=== PATIENT | male | born 1985 | race Caucasian/White ===

== ENCOUNTER 2019-05-01 06:29 | Inpatient (IN) ==
[2019-05-01] MEDS ORDERED: *HR* HYDROmorphone (PF) 1 MG/ML SYRINGE IVP ONE ×2 (07:03→08:51)
[2019-05-01] MEDS ORDERED: 0.9 % Sodium Chloride 1,000 ML IVC ONE ×2 (07:03→07:59)
[2019-05-01] MEDS ORDERED: Ondansetron 4 MG/2 ML VIAL IVP ONE (07:03)
[2019-05-01] MEDS ORDERED: Promethazine 25 MG in 0.9 % Sodium Chloride 50 ML IVPB ONE (07:30)
[2019-05-01 07:57] LABS: Basophils % 0.2 %; Bilirubin,Urine Negative (Negative); Blood,Urine Negative (Negative); Clarity,Urine Clear (Clear); Color,Urine Yellow (Yellow); Glucose,Urine (UA) Normal (Normal); Hematocrit 49.5 % (37.5-50.1); Hemoglobin 16.1 g/dL (12.9-16.9); Immature Granulocytes % 0.5 % (0-4); Ketones,Urine 15 mg/dL (Negative); Leukocyte Esterase,Urine Negative (Negative); Lymphocytes # 1.1 K/mcL (0.6-4.6); Lymphocytes % 5.9 %; Mean Corpuscular HGB Conc 32.5 g/dL (31.6-35.5); Mean Corpuscular Hemoglobin 28.5 pg (28.0-33.3); Mean Corpuscular Volume 87.8 fL (83.0-100.0); Mean Platelet Volume 10.2 fL (9.4-12.4); Monocytes % 5.4 %; Neutrophils # 16.3 K/mcL (1.6-8.9); Nitrite,Urine Negative (Negative); PH,Urine 8.5 pH Units (5.0-8.0); Platelet Count 307 K/mcL (140-400); Protein,Urine Trace mg/dL (Neg-Trace); Red Blood Count 5.64 M/mcL (4.19-5.50); Red Cell Distribution Width 13.3 % (11.5-14.5); Specific Gravity,Urine 1.024 (1.010-1.025); Urobilinogen,Urine Normal (Normal); White Blood Count 18.5 K/mcL (4.3-11.1)
[2019-05-01] MEDS ORDERED: Piperacillin/Tazobactam 3.375 GM in 0.9 % Sodium Chloride Mini Bag 100 ML IVPB ONE (08:01)
[2019-05-01 08:18] LABS: Alanine Aminotransferase 25 Units/L (7-52); Albumin 4.7 g/dL (3.5-5.7); Albumin/Globulin Ratio 1.6 (1.1-2.2); Alkaline Phosphatase 89 Units/L (34-104); Aspartate Amino Transferase 21 Units/L (13-39); BUN/Creatinine Ratio 15 (6-26); Bilirubin,Direct 0.4 mg/dL (0.0-0.2); Bilirubin,Indirect 0.9 mg/dL (0.0-1.2); Bilirubin,Total 1.3 mg/dL (0.3-1.0); Blood Urea Nitrogen 14 mg/dL (6-20); Calcium 9.8 mg/dL (8.6-10.3); Carbon Dioxide 26 mEq/L (23-29); Chloride 103 mEq/L (98-107); Glucose 130 mg/dL (70-105); Lipase 29 Units/L (11-82); Osmolality,Calculated 294 (280-300); Potassium 4.2 mEq/L (3.5-5.1); Sodium 141 mEq/L (136-145); Total Protein 7.7 g/dL (6.4-8.9); eGFR For African Americans > 60 (> 60); eGFR For Non-African Americans > 60 (> 60)
[2019-05-01] MEDS ORDERED: MetroNIDAZOLE 500 MG/100 ML 500 MG/100 ML BAG IVPB ONE (08:24)
[2019-05-01] MEDS ORDERED: Naloxone 0.4 MG/ML INJ IVP PRN (09:33)
[2019-05-01] MEDS: Pantoprazole 40 MG VIAL IVP SCH (11:44)
[2019-05-01] MEDS: 0.9 % Sodium Chloride 1,000 ML IVC SCH ×2 (11:44→20:40)
[2019-05-01] MEDS: Piperacillin/Tazobactam 3.375 GM in 0.9 % Sodium Chloride Mini Bag 100 ML IVPB SCH (16:49)
[2019-05-01] MEDS: Acetaminophen IV 1,000 MG/100 ML INFUS..BTL IVPB SCH (18:34)
[2019-05-01] MEDS: *HR* Heparin 5,000 UNIT/ML VIAL SQ SCH (18:34)
[2019-05-01] MEDS ORDERED: Dextrose Gel 15 GM/37.5 ML TUBE PO PRN ×2 (20:18)
[2019-05-01] MEDS ORDERED: D5% in Water 1,000 ML IVC PRN (20:18)
[2019-05-02] MEDS: *HR* Dextrose 50 % in Water (Syg) 50 ML SYRINGE IVP PRN ×2 (00:02→12:04)
[2019-05-02] MEDS: Piperacillin/Tazobactam 3.375 GM in 0.9 % Sodium Chloride Mini Bag 100 ML IVPB SCH ×3 (00:11→18:27)
[2019-05-02] MEDS: Ondansetron 4 MG/2 ML VIAL IVP PRN ×2 (00:23→08:27)
[2019-05-02] MEDS: Acetaminophen IV 1,000 MG/100 ML INFUS..BTL IVPB SCH ×5 (01:09→23:28)
[2019-05-02 05:31] LABS: Basophils % 0.1 %; Hematocrit 43.6 % (37.5-50.1); Immature Granulocytes % 1.1 % (0-4); Lymphocytes % 5.9 %; Mean Corpuscular HGB Conc 31.7 g/dL (31.6-35.5); Mean Corpuscular Hemoglobin 28.8 pg (28.0-33.3); Mean Corpuscular Volume 90.8 fL (83.0-100.0); Mean Platelet Volume 10.3 fL (9.4-12.4); Monocytes # 0.9 K/mcL (0.0-1.3); Monocytes % 5.3 %; Platelet Count 188 K/mcL (140-400); Red Cell Distribution Width 13.8 % (11.5-14.5); Segmented Neutrophils % 87.6 %; White Blood Count 17.5 K/mcL (4.3-11.1)
[2019-05-02 05:34] LABS: Hemoglobin 13.8 g/dL (12.9-16.9); Neutrophils # 15.3 K/mcL (1.6-8.9)
[2019-05-02 05:52] LABS: BUN/Creatinine Ratio 12 (6-26); Blood Urea Nitrogen 12 mg/dL (6-20); Calcium 8.2 mg/dL (8.6-10.3); Carbon Dioxide 24 mEq/L (23-29); Chloride 106 mEq/L (98-107); Glucose 92 mg/dL (70-105); Magnesium 1.7 mg/dL (1.6-2.6); Osmolality,Calculated 287 (280-300); Phosphorous 2.3 mg/dL (2.7-4.5); Platelet Estimate Normal (Normal); Potassium 4.1 mEq/L (3.5-5.1); Reactive Lymphocytes Present (Not Present); Sodium 139 mEq/L (136-145); eGFR For African Americans > 60 (> 60); eGFR For Non-African Americans > 60 (> 60)
[2019-05-02] MEDS: *HR* Heparin 5,000 UNIT/ML VIAL SQ SCH ×2 (05:56→18:27)
[2019-05-02] MEDS ORDERED: 0.9 % Sodium Chloride 1,000 ML IVC SCH (07:45)
[2019-05-02] MEDS: Pantoprazole 40 MG VIAL IVP SCH (08:27)
[2019-05-02] MEDS: Scopolamine Patch 1.5 MG PATCH.TD72 TD SCH (17:46)
[2019-05-02] MEDS: D5% in 0.9% NACL 1,000 ML IVC SCH (18:27)
[2019-05-03] MEDS: Piperacillin/Tazobactam 3.375 GM in 0.9 % Sodium Chloride Mini Bag 100 ML IVPB SCH ×3 (00:18→15:17)
[2019-05-03] MEDS: D5% in 0.9% NACL 1,000 ML IVC SCH ×3 (02:37→18:25)
[2019-05-03 05:09] LABS: Basophils % 0.2 %; Hematocrit 40.5 % (37.5-50.1); Immature Granulocytes % 0.9 % (0-4); Lymphocytes # 1.1 K/mcL (0.6-4.6); Lymphocytes % 8.6 %; Mean Corpuscular HGB Conc 32.1 g/dL (31.6-35.5); Mean Corpuscular Hemoglobin 28.8 pg (28.0-33.3); Mean Corpuscular Volume 89.8 fL (83.0-100.0); Monocytes # 0.6 K/mcL (0.0-1.3); Monocytes % 5.1 %; Neutrophils # 10.5 K/mcL (1.6-8.9); Platelet Count 172 K/mcL (140-400); Red Blood Count 4.51 M/mcL (4.19-5.50); Red Cell Distribution Width 13.7 % (11.5-14.5); Segmented Neutrophils % 85.2 %; White Blood Count 12.4 K/mcL (4.3-11.1)
[2019-05-03 05:27] LABS: BUN/Creatinine Ratio 13 (6-26); Blood Urea Nitrogen 10 mg/dL (6-20); Calcium 8.1 mg/dL (8.6-10.3); Carbon Dioxide 25 mEq/L (23-29); Chloride 109 mEq/L (98-107); Glucose 108 mg/dL (70-105); Osmolality,Calculated 286 (280-300); Phosphorous 1.5 mg/dL (2.7-4.5); Potassium 3.7 mEq/L (3.5-5.1); Sodium 138 mEq/L (136-145); eGFR For African Americans > 60 (> 60); eGFR For Non-African Americans > 60 (> 60)
[2019-05-03] MEDS: Acetaminophen IV 1,000 MG/100 ML INFUS..BTL IVPB SCH ×3 (05:28→18:24)
[2019-05-03] MEDS: Ondansetron 4 MG/2 ML VIAL IVP PRN (05:28)
[2019-05-03] MEDS: *HR* Heparin 5,000 UNIT/ML VIAL SQ SCH ×2 (05:31→18:24)
[2019-05-03] MEDS: Pantoprazole 40 MG VIAL IVP SCH (08:09)
[2019-05-03] MEDS: Ondansetron 4 MG/2 ML VIAL IVP SCH ×3 (12:23→20:03)
[2019-05-03] MEDS ORDERED: Isovue-370 500 ML BOTTLE IVP ONE (12:39)
[2019-05-03] MEDS ORDERED: Isovue-370 500 ML BOTTLE RC ONE (14:14)
[2019-05-03] MEDS ORDERED: 0.9 % Sodium Chloride 1,000 ML IVC SCH (14:15)
[2019-05-03] MEDS: *HR* Promethazine 25 MG/ML VIAL IVP PRN (18:24)
[2019-05-04] MEDS: D5% in 0.9% NACL 1,000 ML IVC SCH ×3 (00:10→20:37)
[2019-05-04] MEDS: Ondansetron 4 MG/2 ML VIAL IVP SCH ×6 (00:14→20:32)
[2019-05-04] MEDS: Acetaminophen IV 1,000 MG/100 ML INFUS..BTL IVPB SCH ×4 (00:14→17:34)
[2019-05-04] MEDS: Piperacillin/Tazobactam 3.375 GM in 0.9 % Sodium Chloride Mini Bag 100 ML IVPB SCH ×3 (00:58→15:57)
[2019-05-04] MEDS: *HR* Promethazine 25 MG/ML VIAL IVP PRN (01:00)
[2019-05-04 04:58] LABS: Basophils % 0.1 %; Eosinophils % 0.2 %; Hematocrit 37.5 % (37.5-50.1); Immature Granulocytes % 0.5 % (0-4); Lymphocytes # 0.9 K/mcL (0.6-4.6); Lymphocytes % 9.3 %; Mean Corpuscular Hemoglobin 27.8 pg (28.0-33.3); Mean Platelet Volume 10.1 fL (9.4-12.4); Monocytes # 0.6 K/mcL (0.0-1.3); Monocytes % 6.3 %; Neutrophils # 8.1 K/mcL (1.6-8.9); Platelet Count 198 K/mcL (140-400); Red Blood Count 4.31 M/mcL (4.19-5.50); Red Cell Distribution Width 13.7 % (11.5-14.5); Segmented Neutrophils % 83.6 %; White Blood Count 9.7 K/mcL (4.3-11.1)
[2019-05-04 05:13] LABS: BUN/Creatinine Ratio 9 (6-26); Blood Urea Nitrogen 8 mg/dL (6-20); Calcium 8.2 mg/dL (8.6-10.3); Carbon Dioxide 26 mEq/L (23-29); Chloride 108 mEq/L (98-107); Glucose 112 mg/dL (70-105); Osmolality,Calculated 291 (280-300); Potassium 3.4 mEq/L (3.5-5.1); Sodium 141 mEq/L (136-145); eGFR For African Americans > 60 (> 60); eGFR For Non-African Americans > 60 (> 60)
[2019-05-04] MEDS: *HR* Heparin 5,000 UNIT/ML VIAL SQ SCH ×2 (05:59→17:33)
[2019-05-04] MEDS: Pantoprazole 40 MG VIAL IVP SCH ×2 (08:25→20:32)
[2019-05-04] MEDS ORDERED: Potassium Chloride 40 MEQ, Lidocaine 1% 2 ML in D5% in Water 500 ML IVPB ONE (09:36)
[2019-05-04] MEDS ORDERED: *HR* Promethazine 25 MG/ML VIAL IVP PRN (16:36)
[2019-05-04] MEDS ORDERED: Potassium Phosphate 44 MEQ in 0.9 % Sodium Chloride 250 ML IVPB ONE (19:58)
[2019-05-04] MEDS: Metoclopramide 10 MG/2 ML VIAL IVP PRN (21:42)
[2019-05-05] MEDS: Ondansetron 4 MG/2 ML VIAL IVP SCH ×7 (00:09→23:25)
[2019-05-05] MEDS: Piperacillin/Tazobactam 3.375 GM in 0.9 % Sodium Chloride Mini Bag 100 ML IVPB SCH ×4 (00:09→23:21)
[2019-05-05] MEDS: Acetaminophen IV 1,000 MG/100 ML INFUS..BTL IVPB SCH ×3 (00:10→11:37)
[2019-05-05] MEDS: D5% in 0.9% NACL 1,000 ML IVC SCH ×3 (00:11→17:23)
[2019-05-05 04:57] LABS: Basophils % 0.3 %; Eosinophils % 0.3 %; Hematocrit 36.5 % (37.5-50.1); Hemoglobin 11.8 g/dL (12.9-16.9); Immature Granulocytes % 0.5 % (0-4); Lymphocytes # 1.1 K/mcL (0.6-4.6); Lymphocytes % 13.7 %; Mean Corpuscular HGB Conc 32.3 g/dL (31.6-35.5); Mean Corpuscular Hemoglobin 28.3 pg (28.0-33.3); Mean Corpuscular Volume 87.5 fL (83.0-100.0); Mean Platelet Volume 9.9 fL (9.4-12.4); Monocytes # 0.6 K/mcL (0.0-1.3); Monocytes % 8.2 %; Platelet Count 228 K/mcL (140-400); Red Blood Count 4.17 M/mcL (4.19-5.50); Red Cell Distribution Width 13.9 % (11.5-14.5); White Blood Count 7.8 K/mcL (4.3-11.1)
[2019-05-05] MEDS: *HR* Heparin 5,000 UNIT/ML VIAL SQ SCH ×2 (05:31→17:23)
[2019-05-05] MEDS: Metoclopramide 10 MG/2 ML VIAL IVP PRN ×2 (05:32→15:59)
[2019-05-05 06:33] LABS: BUN/Creatinine Ratio 11 (6-26); Blood Urea Nitrogen 9 mg/dL (6-20); Calcium 8.1 mg/dL (8.6-10.3); Carbon Dioxide 24 mEq/L (23-29); Chloride 107 mEq/L (98-107); Glucose 94 mg/dL (70-105); Osmolality,Calculated 290 (280-300); Potassium 3.4 mEq/L (3.5-5.1); Sodium 141 mEq/L (136-145); eGFR For African Americans > 60 (> 60); eGFR For Non-African Americans > 60 (> 60)
[2019-05-05 07:50] LABS: Phosphorous 2.8 mg/dL (2.7-4.5)
[2019-05-05] MEDS: Pantoprazole 40 MG VIAL IVP SCH ×2 (08:17→21:20)
[2019-05-05] MEDS ORDERED: Potassium Chloride 40 MEQ, Lidocaine 1% 2 ML in D5% in Water 500 ML IVPB ONE (10:10)
[2019-05-05] MEDS: Scopolamine Patch 1.5 MG PATCH.TD72 TD SCH (17:22)
[2019-05-06] MEDS: D5% in 0.9% NACL 1,000 ML IVC SCH ×3 (03:47→21:01)
[2019-05-06 05:11] LABS: BUN/Creatinine Ratio 8 (6-26); Blood Urea Nitrogen 7 mg/dL (6-20); Calcium 8.2 mg/dL (8.6-10.3); Carbon Dioxide 25 mEq/L (23-29); Chloride 106 mEq/L (98-107); Glucose 98 mg/dL (70-105); Magnesium 1.6 mg/dL (1.6-2.6); Osmolality,Calculated 288 (280-300); Phosphorous 2.9 mg/dL (2.7-4.5); Potassium 3.7 mEq/L (3.5-5.1); Sodium 140 mEq/L (136-145); eGFR For African Americans > 60 (> 60); eGFR For Non-African Americans > 60 (> 60)
[2019-05-06 05:19] LABS: Basophils % 0.2 %; Eosinophils # 0.1 K/mcL (0.0-0.6); Eosinophils % 0.5 %; Hematocrit 37.8 % (37.5-50.1); Hemoglobin 12.1 g/dL (12.9-16.9); Immature Granulocytes % 1.1 % (0-4); Lymphocytes # 1.1 K/mcL (0.6-4.6); Lymphocytes % 9.2 %; Mean Corpuscular Hemoglobin 27.8 pg (28.0-33.3); Mean Corpuscular Volume 86.9 fL (83.0-100.0); Mean Platelet Volume 10.3 fL (9.4-12.4); Monocytes # 1.1 K/mcL (0.0-1.3); Monocytes % 9.1 %; Platelet Count 262 K/mcL (140-400); Red Blood Count 4.35 M/mcL (4.19-5.50); Red Cell Distribution Width 13.6 % (11.5-14.5); Segmented Neutrophils % 79.9 %
[2019-05-06 05:20] LABS: Neutrophils # 9.8 K/mcL (1.6-8.9); White Blood Count 12.2 K/mcL (4.3-11.1)
[2019-05-06] MEDS: *HR* Heparin 5,000 UNIT/ML VIAL SQ SCH ×2 (06:46→18:06)
[2019-05-06] MEDS: Ondansetron 4 MG/2 ML VIAL IVP SCH ×5 (06:47→21:02)
[2019-05-06] MEDS ORDERED: Isovue-370 500 ML BOTTLE IVP ONE (07:30)
[2019-05-06] MEDS: Piperacillin/Tazobactam 3.375 GM in 0.9 % Sodium Chloride Mini Bag 100 ML IVPB SCH ×2 (07:57→16:26)
[2019-05-06] MEDS: Pantoprazole 40 MG VIAL IVP SCH ×2 (07:57→21:02)
[2019-05-06] MEDS ORDERED: Potassium Chloride 40 MEQ, Lidocaine 1% 2 ML in D5% in Water 500 ML IVPB ONE (10:44)
[2019-05-06] MEDS: Metoclopramide 10 MG/2 ML VIAL IVP PRN (16:26)
[2019-05-07] MEDS: Piperacillin/Tazobactam 3.375 GM in 0.9 % Sodium Chloride Mini Bag 100 ML IVPB SCH ×4 (00:09→23:55)
[2019-05-07] MEDS: *HR* LORazepam 2 MG/ML VIAL IVP PRN ×3 (00:09→23:58)
[2019-05-07 05:57] LABS: Basophils # 0.1 K/mcL (0.0-0.2); Basophils % 0.3 %; Eosinophils # 0.1 K/mcL (0.0-0.6); Eosinophils % 0.6 %; Hematocrit 38.1 % (37.5-50.1); Hemoglobin 12.5 g/dL (12.9-16.9); Immature Granulocytes % 2.3 % (0-4); Lymphocytes # 1.2 K/mcL (0.6-4.6); Lymphocytes % 7.1 %; Mean Corpuscular HGB Conc 32.8 g/dL (31.6-35.5); Mean Corpuscular Hemoglobin 28.3 pg (28.0-33.3); Mean Corpuscular Volume 86.2 fL (83.0-100.0); Mean Platelet Volume 10.1 fL (9.4-12.4); Monocytes # 1.3 K/mcL (0.0-1.3); Monocytes % 7.6 %; Platelet Count 287 K/mcL (140-400); Red Blood Count 4.42 M/mcL (4.19-5.50); Segmented Neutrophils % 82.1 %; White Blood Count 17.1 K/mcL (4.3-11.1)
[2019-05-07] MEDS: Ondansetron 4 MG/2 ML VIAL IVP SCH ×7 (06:11→23:51)
[2019-05-07] MEDS: D5% in 0.9% NACL 1,000 ML IVC SCH ×3 (06:12→17:40)
[2019-05-07] MEDS: *HR* Heparin 5,000 UNIT/ML VIAL SQ SCH ×2 (06:13→17:32)
[2019-05-07 06:16] LABS: BUN/Creatinine Ratio 7 (6-26); Blood Urea Nitrogen 5 mg/dL (6-20); Calcium 8.3 mg/dL (8.6-10.3); Carbon Dioxide 26 mEq/L (23-29); Chloride 104 mEq/L (98-107); Glucose 102 mg/dL (70-105); Osmolality,Calculated 281 (280-300); Potassium 3.5 mEq/L (3.5-5.1); Sodium 137 mEq/L (136-145); eGFR For African Americans > 60 (> 60); eGFR For Non-African Americans > 60 (> 60)
[2019-05-07 08:10] LABS: INR 1.6; Prothrombin Time 17.8 Seconds (9.4-12.1)
[2019-05-07] MEDS ORDERED: Piperacillin/Tazobactam 3.375 GM VIAL ONE (08:29)
[2019-05-07] MEDS: Pantoprazole 40 MG VIAL IVP SCH ×2 (08:41→20:56)
[2019-05-07] MEDS ORDERED: Ipratropium/Albuterol Neb 3 ML IH PRN (09:00)
[2019-05-07] MEDS: Scopolamine Patch 1.5 MG PATCH.TD72 TD SCH (09:05)
[2019-05-07] MEDS ORDERED: Lidocaine -MPF 1% 5 ML AMPUL INFILT ONE (09:15)
[2019-05-07] MEDS ORDERED: *HR* FentaNYL (PF) 100 MCG/2 ML VIAL IVP ONE (09:31)
[2019-05-07] MEDS ORDERED: *HR* Midazolam HCl 2 MG/2 ML VIAL IVP ONE (09:31)
[2019-05-07] MEDS ORDERED: 0.9 % Sodium Chloride 500 ML ONE (09:35)
[2019-05-07 09:52] LABS: Albumin 3.1 g/dL (3.5-5.7)
[2019-05-07] MEDS ORDERED: D10% in Water 500 ML IVC PRN (11:55)
[2019-05-07] MEDS ORDERED: Piperacillin/Tazobactam 3.375 GM in 0.9 % Sodium Chloride Mini Bag 100 ML IVPB SCH (12:00)
[2019-05-07] MEDS: Fluconazole 200 MG/100 ML 200 MG/100 ML BAG IVPB SCH (13:25)
[2019-05-07 13:32] LABS: INR 1.7; Prothrombin Time 18.9 Seconds (9.4-12.1)
[2019-05-07] MEDS: MetroNIDAZOLE 500 MG/100 ML 500 MG/100 ML BAG IVPB SCH ×2 (15:08→20:56)
[2019-05-07] MEDS ORDERED: Dextrose Gel 15 GM/37.5 ML TUBE PO PRN ×2 (15:24)
[2019-05-07] MEDS ORDERED: D5% in Water 1,000 ML IVC PRN (15:24)
[2019-05-07] MEDS ORDERED: *HR* Dextrose 50 % in Water (Syg) 50 ML SYRINGE IVP PRN (15:24)
[2019-05-07 16:13] LABS: Magnesium 1.8 mg/dL (1.6-2.6)
[2019-05-07] MEDS ORDERED: 0.9 % Sodium Chloride 250 ML ONE ×2 (16:31→16:38)
[2019-05-07] MEDS ORDERED: Clinimix E 5%-15% SOLUTION 2,000 ML with MVI, adult with vitamin K 10 ML IVC SCH ×2 (17:00)
[2019-05-07] MEDS ORDERED: Insulin LISPRO 300 UNITS/3 ML VIAL SQ SCH (18:00)
[2019-05-07] MEDS: Insulin LISPRO 300 UNITS/3 ML VIAL SQ SCH ×2 (20:53→23:50)
[2019-05-08] MEDS: MetroNIDAZOLE 500 MG/100 ML 500 MG/100 ML BAG IVPB SCH ×2 (04:02→13:46)
[2019-05-08] MEDS: Insulin LISPRO 300 UNITS/3 ML VIAL SQ SCH ×5 (04:18→21:05)
[2019-05-08] MEDS: Ondansetron 4 MG/2 ML VIAL IVP SCH ×5 (04:18→21:04)
[2019-05-08 04:28] LABS: INR 1.2; Prothrombin Time 13.4 Seconds (9.4-12.1)
[2019-05-08 04:39] LABS: Albumin 2.9 g/dL (3.5-5.7); Bilirubin,Direct 0.3 mg/dL (0.0-0.2); Bilirubin,Indirect 0.4 mg/dL (0.0-1.2); Bilirubin,Total 0.7 mg/dL (0.3-1.0); Globulin 2.9 g/dL (2.4-3.5); Total Protein 5.8 g/dL (6.4-8.9)
[2019-05-08] MEDS: *HR* Heparin 5,000 UNIT/ML VIAL SQ SCH ×2 (05:23→17:25)
[2019-05-08 07:35] LABS: BUN/Creatinine Ratio 10 (6-26); Blood Urea Nitrogen 7 mg/dL (6-20); Calcium 8.2 mg/dL (8.6-10.3); Carbon Dioxide 26 mEq/L (23-29); Chloride 102 mEq/L (98-107); Glucose 95 mg/dL (70-105); Magnesium 1.9 mg/dL (1.6-2.6); Osmolality,Calculated 282 (280-300); Phosphorous 3.7 mg/dL (2.7-4.5); Potassium 3.6 mEq/L (3.5-5.1); Sodium 137 mEq/L (136-145); eGFR For African Americans > 60 (> 60); eGFR For Non-African Americans > 60 (> 60)
[2019-05-08 07:50] LABS: Hemoglobin 11.5 g/dL (12.9-16.9); Mean Corpuscular HGB Conc 32.9 g/dL (31.6-35.5); Mean Corpuscular Hemoglobin 28.3 pg (28.0-33.3); Mean Platelet Volume 10.1 fL (9.4-12.4); Platelet Count 292 K/mcL (140-400); Red Blood Count 4.07 M/mcL (4.19-5.50); Red Cell Distribution Width 13.9 % (11.5-14.5)
[2019-05-08] MEDS: Piperacillin/Tazobactam 3.375 GM in 0.9 % Sodium Chloride Mini Bag 100 ML IVPB SCH ×3 (08:34→23:22)
[2019-05-08] MEDS: Fluconazole 200 MG/100 ML 200 MG/100 ML BAG IVPB SCH (08:34)
[2019-05-08] MEDS: Pantoprazole 40 MG VIAL IVP SCH ×2 (08:35→21:04)
[2019-05-08 09:26] LABS: Eosinophils # 0.4 K/mcL (0.0-0.6); Lymphocytes # 1.5 K/mcL (0.6-4.6); Monocytes # 0.4 K/mcL (0.0-1.3); Neutrophils # 8.6 K/mcL (1.6-8.9)
[2019-05-08 09:29] LABS: Anisocytosis 1+ (Not Present); Platelet Estimate Normal (Normal); Polychromasia 1+ (Not Present)
[2019-05-08] MEDS: *HR* LORazepam 2 MG/ML VIAL IVP PRN (13:58)
[2019-05-08] MEDS ORDERED: *HR* Midazolam HCl 2 MG/2 ML VIAL ONE (14:35)
[2019-05-08] MEDS ORDERED: *HR* FentaNYL (PF) 100 MCG/2 ML VIAL ONE (14:35)
[2019-05-08] MEDS ORDERED: *HR* FentaNYL (PF) 100 MCG/2 ML VIAL IVP ONE (14:42)
[2019-05-08] MEDS ORDERED: *HR* Midazolam HCl 2 MG/2 ML VIAL IVP ONE (14:42)
[2019-05-08] MEDS: D5% in 0.9% NACL 1,000 ML IVC SCH (16:15)
[2019-05-08] MEDS ORDERED: Clinimix E 5%-15% SOLUTION 2,000 ML with MVI, adult with vitamin K 10 ML IVC SCH (17:00)
[2019-05-09] MEDS: Insulin LISPRO 300 UNITS/3 ML VIAL SQ SCH ×6 (00:24→20:17)
[2019-05-09] MEDS: Ondansetron 4 MG/2 ML VIAL IVP SCH ×6 (00:24→20:17)
[2019-05-09 04:48] LABS: Basophils # 0.1 K/mcL (0.0-0.2); Basophils % 0.7 %; Eosinophils # 0.3 K/mcL (0.0-0.6); Hematocrit 35.1 % (37.5-50.1); Hemoglobin 11.4 g/dL (12.9-16.9); Immature Granulocytes % 3.9 % (0-4); Lymphocytes # 1.1 K/mcL (0.6-4.6); Lymphocytes % 13.4 %; Mean Corpuscular HGB Conc 32.5 g/dL (31.6-35.5); Mean Corpuscular Hemoglobin 28.4 pg (28.0-33.3); Mean Corpuscular Volume 87.5 fL (83.0-100.0); Mean Platelet Volume 10.2 fL (9.4-12.4); Monocytes # 0.8 K/mcL (0.0-1.3); Monocytes % 9.8 %; Neutrophils # 5.8 K/mcL (1.6-8.9); Platelet Count 317 K/mcL (140-400); Red Blood Count 4.01 M/mcL (4.19-5.50); Red Cell Distribution Width 13.8 % (11.5-14.5); Segmented Neutrophils % 68.2 %; White Blood Count 8.5 K/mcL (4.3-11.1)
[2019-05-09 05:09] LABS: BUN/Creatinine Ratio 13 (6-26); Blood Urea Nitrogen 8 mg/dL (6-20); Calcium 8.1 mg/dL (8.6-10.3); Carbon Dioxide 24 mEq/L (23-29); Chloride 104 mEq/L (98-107); Glucose 93 mg/dL (70-105); Osmolality,Calculated 282 (280-300); Phosphorous 3.9 mg/dL (2.7-4.5); Potassium 3.5 mEq/L (3.5-5.1); Sodium 137 mEq/L (136-145); eGFR For African Americans > 60 (> 60); eGFR For Non-African Americans > 60 (> 60)
[2019-05-09] MEDS: *HR* Heparin 5,000 UNIT/ML VIAL SQ SCH ×2 (05:10→19:16)
[2019-05-09 05:57] LABS: Platelet Estimate Normal (Normal)
[2019-05-09] MEDS: D5% in 0.9% NACL 1,000 ML IVC SCH ×3 (08:12→13:35)
[2019-05-09] MEDS: Piperacillin/Tazobactam 3.375 GM in 0.9 % Sodium Chloride Mini Bag 100 ML IVPB SCH ×3 (08:23→23:40)
[2019-05-09] MEDS: Fluconazole 200 MG/100 ML 200 MG/100 ML BAG IVPB SCH (08:23)
[2019-05-09] MEDS: Pantoprazole 40 MG VIAL IVP SCH ×2 (08:24→20:16)
[2019-05-09] MEDS ORDERED: Clinimix E 5%-15% SOLUTION 2,000 ML with MVI, adult with vitamin K 10 ML IVC SCH (17:00)
[2019-05-10] MEDS: Insulin LISPRO 300 UNITS/3 ML VIAL SQ SCH ×6 (00:09→20:56)
[2019-05-10] MEDS: Ondansetron 4 MG/2 ML VIAL IVP SCH ×6 (00:10→20:57)
[2019-05-10 04:33] LABS: White Blood Count 9.2 K/mcL (4.3-11.1)
[2019-05-10 04:34] LABS: Basophils # 0.1 K/mcL (0.0-0.2); Basophils % 0.8 %; Eosinophils # 0.3 K/mcL (0.0-0.6); Eosinophils % 3.6 %; Hematocrit 37.7 % (37.5-50.1); Hemoglobin 12.3 g/dL (12.9-16.9); Immature Granulocytes % 2.8 % (0-4); Lymphocytes # 1.2 K/mcL (0.6-4.6); Lymphocytes % 13.3 %; Mean Corpuscular HGB Conc 32.6 g/dL (31.6-35.5); Mean Corpuscular Hemoglobin 28.1 pg (28.0-33.3); Mean Corpuscular Volume 86.3 fL (83.0-100.0); Mean Platelet Volume 9.8 fL (9.4-12.4); Monocytes # 0.8 K/mcL (0.0-1.3); Monocytes % 8.9 %; Neutrophils # 6.5 K/mcL (1.6-8.9); Platelet Count 348 K/mcL (140-400); Red Blood Count 4.37 M/mcL (4.19-5.50); Red Cell Distribution Width 13.9 % (11.5-14.5); Segmented Neutrophils % 70.6 %
[2019-05-10 04:53] LABS: BUN/Creatinine Ratio 14 (6-26); Blood Urea Nitrogen 10 mg/dL (6-20); Calcium 8.4 mg/dL (8.6-10.3); Carbon Dioxide 26 mEq/L (23-29); Chloride 104 mEq/L (98-107); Glucose 102 mg/dL (70-105); Osmolality,Calculated 285 (280-300); Phosphorous 3.7 mg/dL (2.7-4.5); Potassium 3.8 mEq/L (3.5-5.1); Sodium 138 mEq/L (136-145); eGFR For African Americans > 60 (> 60); eGFR For Non-African Americans > 60 (> 60)
[2019-05-10 04:54] LABS: Large Platelets Present (Not Present); Platelet Estimate Normal (Normal); Reactive Lymphocytes Present (Not Present)
[2019-05-10] MEDS: *HR* Heparin 5,000 UNIT/ML VIAL SQ SCH ×2 (05:26→17:35)
[2019-05-10] MEDS: Pantoprazole 40 MG VIAL IVP SCH ×2 (08:58→20:59)
[2019-05-10] MEDS: Fluconazole 200 MG/100 ML 200 MG/100 ML BAG IVPB SCH (09:01)
[2019-05-10] MEDS: Piperacillin/Tazobactam 3.375 GM in 0.9 % Sodium Chloride Mini Bag 100 ML IVPB SCH ×2 (09:05→16:21)
[2019-05-10] MEDS: D5% in 0.9% NACL 1,000 ML IVC SCH (11:21)
[2019-05-10] MEDS ORDERED: Clinimix E 5%-15% SOLUTION 2,000 ML with MVI, adult with vitamin K 10 ML IVC SCH (17:00)
[2019-05-11] MEDS: Insulin LISPRO 300 UNITS/3 ML VIAL SQ SCH ×5 (00:22→16:36)
[2019-05-11] MEDS: Ondansetron 4 MG/2 ML VIAL IVP SCH ×7 (00:22→23:39)
[2019-05-11] MEDS: Piperacillin/Tazobactam 3.375 GM in 0.9 % Sodium Chloride Mini Bag 100 ML IVPB SCH ×2 (00:23→08:43)
[2019-05-11] MEDS: D5% in 0.9% NACL 1,000 ML IVC SCH ×2 (04:02→19:54)
[2019-05-11 04:34] LABS: Blood Urea Nitrogen 11 mg/dL (6-20); Calcium 8.4 mg/dL (8.6-10.3); Carbon Dioxide 25 mEq/L (23-29); Chloride 106 mEq/L (98-107); Glucose 104 mg/dL (70-105); Osmolality,Calculated 284 (280-300); Phosphorous 3.2 mg/dL (2.7-4.5); Potassium 4.1 mEq/L (3.5-5.1); Sodium 137 mEq/L (136-145)
[2019-05-11 04:48] LABS: BUN/Creatinine Ratio 14 (6-26); eGFR For African Americans > 60 (> 60); eGFR For Non-African Americans > 60 (> 60)
[2019-05-11] MEDS: *HR* Heparin 5,000 UNIT/ML VIAL SQ SCH ×2 (05:11→17:41)
[2019-05-11] MEDS: Pantoprazole 40 MG VIAL IVP SCH ×2 (08:40→21:01)
[2019-05-11] MEDS: Fluconazole 200 MG/100 ML 200 MG/100 ML BAG IVPB SCH (08:42)
[2019-05-11] MEDS ORDERED: Acetaminophen 325 MG TABLET PO PRN (15:02)
[2019-05-11] MEDS: metroNIDAZOLE 500 MG TABLET PO SCH ×2 (15:51→21:01)
[2019-05-11] MEDS: Scopolamine Patch 1.5 MG PATCH.TD72 TD SCH (17:46)
[2019-05-12] MEDS: Ondansetron 4 MG/2 ML VIAL IVP SCH ×2 (05:34→09:34)
[2019-05-12] MEDS: *HR* Heparin 5,000 UNIT/ML VIAL SQ SCH (05:37)
[2019-05-12] MEDS: metroNIDAZOLE 500 MG TABLET PO SCH ×2 (09:34→14:29)
[2019-05-12] MEDS: Pantoprazole 40 MG VIAL IVP SCH (09:34)
[2019-05-12] MEDS ORDERED: *HR* LORazepam 1 MG TABLET PO ONE (10:48)
[2019-05-12] MEDS ORDERED: Ondansetron 4 MG/2 ML VIAL IVP ONE (10:48)
[2019-05-12] MEDS ORDERED: *HR* OxyCODONE/APAP 10/325 TABLET PO ONE (10:48)
[2019-05-12 11:31] VITALS: BP 131/88
== END 2019-05-12 14:53 | disposition home or self-care (01) | DRG 871 ==
LOC: EMEROOARM 06:29 → 3ANU 06:29
PROVIDERS: ADMIT Surgery; ATTEND Surgery
PROC: IRDRAIN (2019-05-07 12:00)

== ENCOUNTER 2019-05-15 09:14 | Inpatient (IN) ==
[2019-05-15] MEDS ORDERED: Ondansetron 4 MG/2 ML VIAL IVP PRN (10:01)
[2019-05-15] MEDS ORDERED: *HR* LORazepam 2 MG/ML VIAL IVP PRN (10:05)
[2019-05-15] MEDS ORDERED: Isovue-370 500 ML BOTTLE IVP ONE (10:08)
[2019-05-15] MEDS ORDERED: Pantoprazole 40 MG VIAL IVP SCH (10:15)
[2019-05-15 12:01] LABS: Basophils % 0.4 %; Eosinophils # 0.1 K/mcL (0.0-0.6); Eosinophils % 0.7 %; Hematocrit 48.7 % (37.5-50.1); Lymphocytes # 1.1 K/mcL (0.6-4.6); Lymphocytes % 12.6 %; Mean Corpuscular HGB Conc 31.4 g/dL (31.6-35.5); Mean Corpuscular Hemoglobin 27.7 pg (28.0-33.3); Mean Corpuscular Volume 88.2 fL (83.0-100.0); Mean Platelet Volume 9.6 fL (9.4-12.4); Monocytes # 0.9 K/mcL (0.0-1.3); Monocytes % 9.5 %; Neutrophils # 6.8 K/mcL (1.6-8.9); Platelet Count 542 K/mcL (140-400); Red Blood Count 5.52 M/mcL (4.19-5.50); Red Cell Distribution Width 14.1 % (11.5-14.5); Segmented Neutrophils % 75.8 %
[2019-05-15 12:02] LABS: Hemoglobin 15.3 g/dL (12.9-16.9)
[2019-05-15 12:08] LABS: INR 1.5; Prothrombin Time 16.5 Seconds (9.4-12.1)
[2019-05-15] MEDS: 0.9 % Sodium Chloride 1,000 ML IVC SCH ×2 (12:13→18:35)
[2019-05-15 13:22] LABS: Alanine Aminotransferase 45 Units/L (7-52); Albumin 3.9 g/dL (3.5-5.7); Albumin/Globulin Ratio 0.9 (1.1-2.2); Alkaline Phosphatase 124 Units/L (34-104); Aspartate Amino Transferase 24 Units/L (13-39); BUN/Creatinine Ratio 13 (6-26); Bilirubin,Direct 0.2 mg/dL (0.0-0.2); Bilirubin,Indirect 0.5 mg/dL (0.0-1.2); Bilirubin,Total 0.7 mg/dL (0.3-1.0); Blood Urea Nitrogen 13 mg/dL (6-20); Calcium 9.3 mg/dL (8.6-10.3); Carbon Dioxide 25 mEq/L (23-29); Chloride 103 mEq/L (98-107); Globulin 4.3 g/dL (2.4-3.5); Glucose 91 mg/dL (70-105); Osmolality,Calculated 290 (280-300); Phosphorous 2.6 mg/dL (2.7-4.5); Potassium 3.8 mEq/L (3.5-5.1); Sodium 140 mEq/L (136-145); Total Protein 8.2 g/dL (6.4-8.9); eGFR For African Americans > 60 (> 60); eGFR For Non-African Americans > 60 (> 60)
--- NOTE | 2019-05-15 13:45 | Acute Care Surgery H&P ---
<JrYeni Uvaldo - Last Filed: 05/15/19 14:17> Date of Encounter: 05/15/19 Time of Encounter: 13:39 Assessment and Plan (1) Diverticulitis of colon with perforation Current Visit: Yes Status: Acute The assessment and plan as outlined above was discussed with the patient and/or family members who expressed understanding and agreement. All questions were answered. PT known perforated diverticulitis. He was hospitalized from 05/02 through 05/12/2019 at which time he was receiving IV antibiotics and underwent IR drain placementx2. He was discharged on PO Cipro and Flagyl. His pelvic drain was DC'd prior to his hospital discharge and he went home with the abdominal drain. pt is with feculent material in the drain which is new since yesterday. We will admit him to the hospital for CT of the abd/pelvis with iv and oral contrast. he is advised that pending results it is very possible he will need to proceed with surgery for Latham's. He has not ate or drank since last night. Further recommendations pending Qualifiers: Diverticulitis bleeding: without bleeding Qualified Code(s): K57.20 - Diverticulitis of large intestine with perforation and abscess without bleeding (2) GERD (gastroesophageal reflux disease) Current Visit: Yes Status: Chronic The assessment and plan as outlined above was discussed with the patient and/or family members who expressed understanding and agreement. All questions were answered. Protonix Qualifiers: Esophagitis presence: without esophagitis Qualified Code(s): K21.9 - Gastro-esophageal reflux disease without esophagitis (3) DVT prophylaxis Current Visit: Yes Status: Acute The assessment and plan as outlined above was discussed with the patient and/or family members who expressed understanding and agreement. All questions were answered. ROSA connors now EPCDs in preop if applicable (4) Anxiety Current Visit: Yes Status: Acute The assessment and plan as outlined above was discussed with the patient and/or family members who expressed understanding and agreement. All questions were answered. PRN anxiolytics History of Present Illness Chief complaint: "poop in my drain" HPI: Mr. Britt is a 33 year old male with known perforated diverticulitis who was recently hospitalized 05/01-05/12/219 - and treated with IV antibiotics. His hospital progression of that time eventually led to an abscess which was drained per interventional radiology. The pelvic drain was discontinued prior to DC. His abdominal drain remains. He states yesterday and today began having "poop in my drain," but otherwise feels well. He has been taking his antibiotic as directed. He denies fever, chills, worsenign abdominal pain, nausea, or vomiting. Past Med Surg Social Fam HX - Past Medical History Source: patient Medical history: asthma, GERD Additional medical history: Diverticulitis - Past Surgical History Surgical History: no surgical history - Social History Smoking Status: Never smoker Smokeless Tobacco Status: No Alcohol use: none Drug use: none Occupational status: employed Current living situation: Home - Independent Activity Level: Independent ambulation Recent Out of Country Travel Within the Last 8 Weeks: No Exposure or Possible Exposure to Illness During Travel: No - Family History Mother Family Member Ethnicity: Non- Living Status: Still Living Hx Family Cardiac Disorders: Yes Hx Family Endocrine Disorder: Yes (DM) Hx Family Neurologic Disorders: Yes (CVA) Father Living Status: Still Living Hx Family Cardiac Disorders: Yes Hx Family Cancer: Yes (Skin Cancer) Hx Family Endocrine Disorder: Yes (DM) Hx Family Neurologic Disorders: Yes (TIA) Medications and Allergies Esomeprazole Magnesium [Nexium] 20 mg PO DAILY PRN 05/01/19 [History] Ciprofloxacin [Cipro] 500 mg PO BID 10 Days #20 tablet 05/12/19 [Rx] Docusate Sodium [Colace] 100 mg PO BID PRN #30 capsule 05/12/19 [Rx] HYDROcodone/Acet 5/325 mg [[place] 5-325 mg] 1 tab PO Q6H PRN 5 Days #20 tab 05/12/19 [Rx] Ibuprofen 800 mg PO Q8H PRN #30 tablet 05/12/19 [Rx] Ondansetron ODT [Zofran ODT] 4 mg SL Q4HR PRN #30 tab.rapdis 05/12/19 [Rx] metroNIDAZOLE [Flagyl] 500 mg PO TID 20 Days #42 tablet 05/12/19 [Rx] Allergy/AdvReac Type Severity Reaction Status Date / Time No Known Allergies Allergy Verified 05/01/19 06:33 Review of Systems All systems PM: reviewed and no additional remarkable complaints except as stat ed All systems PM: The remainder of the systems were reviewed and are negative General Surgery Exam Initial Vital Signs Pulse Resp BP Pulse Ox 91 18 130/90 100 07/09/19 11:19 05/15/19 11:19 05/15/19 11:19 05/15/19 11:19 - General physical appearance well nourished, no distress, no pain - Neck trachea midline - Respiratory normal expansion, normal respiratory effort - Cardiovascular Cardiovascular exam: Present: RRR - Abdomen Abdomen general surgery: Present: bowel sounds present, soft, tender, wound (Drain is feculent) Abdominal Tenderness: Present: LLQ - Integumentary Integumentary general surgery: Present: warm and dry - Neurologic Present: CN 2-12 grossly intact, normal coordination, normal sensation - Musculoskeletal Present: normal gait, normal posture - Psychiatric Psychiatric general surgery: Present: appropriate, oriented to person, oriented to place, oriented to time, speech is normal, memory intact Results - Labs 05/15/19 11:50 05/15/19 11:50 Abnormal lab results RBC 5.52 M/mcL (4.19-5.50) H 05/15/19 11:50 MCH 27.7 pg (28.0-33.3) L 05/15/19 11:50 MCHC 31.4 g/dL (31.6-35.5) L 05/15/19 11:50 Plt Count 542 K/mcL (140-400) H D 05/15/19 11:50 PT 16.5 Seconds (9.4-12.1) H 05/15/19 11:50 Phosphorus 2.6 mg/dL (2.7-4.5) L 05/15/19 11:50 124 Units/L (34-104) H 05/15/19 11:50 4.3 g/dL (2.4-3.5) H 05/15/19 11:50 0.9 (1.1-2.2) L 05/15/19 11:50 34.3 mg/dL (17.0-34.0) H 05/15/19 11:50 Diabetes panel 05/15/19 Range/Units 11:50 Sodium 140 (136-145) mEq/L Potassium 3.8 (3.5-5.1) mEq/L Chloride 103 (98-107) mEq/L Carbon Dioxide 25 (23-29) mEq/L BUN 13 (6-20) mg/dL Creatinine 1.00 (0.70-1.30) mg/dL Glucose 91 (70-105) mg/dL Calcium 9.3 (8.6-10.3) mg/dL AST 24 (13-39) Units/L ALT 45 (7-52) Units/L Alkaline Phosphatase 124 H (34-104) Units/L Albumin 3.9 (3.5-5.7) g/dL Calcium panel 05/15/19 Range/Units 11:50 Calcium 9.3 (8.6-10.3) mg/dL Phosphorus 2.6 L (2.7-4.5) mg/dL Albumin 3.9 (3.5-5.7) g/dL Pituitary panel 05/15/19 Range/Units 11:50 Sodium 140 (136-145) mEq/L Potassium 3.8 (3.5-5.1) mEq/L Chloride 103 (98-107) mEq/L Carbon Dioxide 25 (23-29) mEq/L BUN 13 (6-20) mg/dL Creatinine 1.00 (0.70-1.30) mg/dL Glucose 91 (70-105) mg/dL Calcium 9.3 (8.6-10.3) mg/dL Adrenal panel 05/15/19 Range/Units 11:50 Sodium 140 (136-145) mEq/L Potassium 3.8 (3.5-5.1) mEq/L Chloride 103 (98-107) mEq/L Carbon Dioxide 25 (23-29) mEq/L BUN 13 (6-20) mg/dL Creatinine 1.00 (0.70-1.30) mg/dL Glucose 91 (70-105) mg/dL Calcium 9.3 (8.6-10.3) mg/dL Total Bilirubin 0.7 (0.3-1.0) mg/dL AST 24 (13-39) Units/L ALT 45 (7-52) Units/L Alkaline Phosphatase 124 H (34-104) Units/L Albumin 3.9 (3.5-5.7) g/dL All other labs normal. <Janes Young - Last Filed: 05/15/19 16:53> Date of Encounter: 05/15/19 History of Present Illness HPI: Mr. Britt is a 33 year old male Review of Systems All systems PM: The remainder of the systems were reviewed and are negative General Surgery Exam Initial Vital Signs Pulse Resp BP Pulse Ox 91 18 130/90 100 05/15/19 11:19 05/15/19 11:19 05/15/19 11:19 05/15/19 11:19 Results - Labs 05/15/19 11:50 05/15/19 11:50 Abnormal lab results RBC 5.52 M/mcL (4.19-5.50) H 05/15/19 11:50 MCH 27.7 pg (28.0-33.3) L 05/15/19 11:50 MCHC 31.4 g/dL (31.6-35.5) L 05/15/19 11:50 Plt Count 542 K/mcL (140-400) H D 05/15/19 11:50 PT 16.5 Seconds (9.4-12.1) H 05/15/19 11:50 Phosphorus 2.6 mg/dL (2.7-4.5) L 05/15/19 11:50 124 Units/L (34-104) H 05/15/19 11:50 4.3 g/dL (2.4-3.5) H 05/15/19 11:50 0.9 (1.1-2.2) L 05/15/19 11:50 34.3 mg/dL (17.0-34.0) H 05/15/19 11:50 Diabetes panel 05/15/19 Range/Units 11:50 Sodium 140 (136-145) mEq/L Potassium 3.8 (3.5-5.1) mEq/L Chloride 103 (98-107) mEq/L Carbon Dioxide 25 (23-29) mEq/L BUN 13 (6-20) mg/dL Creatinine 1.00 (0.70-1.30) mg/dL Glucose 91 (70-105) mg/dL Calcium 9.3 (8.6-10.3) mg/dL AST 24 (13-39) Units/L ALT 45 (7-52) Units/L Alkaline Phosphatase 124 H (34-104) Units/L Albumin 3.9 (3.5-5.7) g/dL Calcium panel 05/15/19 Range/Units 11:50 Calcium 9.3 (8.6-10.3) mg/dL Phosphorus 2.6 L (2.7-4.5) mg/dL Albumin 3.9 (3.5-5.7) g/dL Pituitary panel 05/15/19 Range/Units 11:50 Sodium 140 (136-145) mEq/L Potassium 3.8 (3.5-5.1) mEq/L Chloride 103 (98-107) mEq/L Carbon Dioxide 25 (23-29) mEq/L BUN 13 (6-20) mg/dL Creatinine 1.00 (0.70-1.30) mg/dL Glucose 91 (70-105) mg/dL Calcium 9.3 (8.6-10.3) mg/dL Adrenal panel 05/15/19 Range/Units 11:50 Sodium 140 (136-145) mEq/L Potassium 3.8 (3.5-5.1) mEq/L Chloride 103 (98-107) mEq/L Carbon Dioxide 25 (23-29) mEq/L BUN 13 (6-20) mg/dL Creatinine 1.00 (0.70-1.30) mg/dL Glucose 91 (70-105) mg/dL Calcium 9.3 (8.6-10.3) mg/dL Total Bilirubin 0.7 (0.3-1.0) mg/dL AST 24 (13-39) Units/L ALT 45 (7-52) Units/L Alkaline Phosphatase 124 H (34-104) Units/L Albumin 3.9 (3.5-5.7) g/dL All other labs normal. - Attending Attestation I examined this patient and my medical decision-making was reviewed with the MOP HANDLE ASSEMBLER. I agree with the documented findings, disposition and treatment plan as described except to the extent set forth below. This gentleman is well known to [facility] service after being admitted recently and treated conservatively for perforated diverticulitis. Pt was discharged home after doing well with IV abx and percutaneous drainage. However, he noted feculent material draining out of his drain. He was then directly admitted to [facility] and planned for Ex Lap for colectomy and probable colostomy. He reports feeling better and denies any recent fevers. His abd/pelvis CT reveals resolution of one previous intraabdominal fluid collection and near resolution of the other. Procedure, risks and benefits of ex lap with Marylin's procedure is d/w pt and his family. Possible complications of this operation are bleeding, infection, ureteral or bladder injury, SB injury or anasthesia complication. Pt risk for complication is low-moderate. Pt understands and wishes to proceed as advised. Consent is obtained. Surgery is scheduled for today. NPO. IV abx.
[2019-05-15] MEDS: MetroNIDAZOLE 500 MG/100 ML 500 MG/100 ML BAG IVPB SCH (15:11)
--- NOTE | 2019-05-15 18:45 | Anesthesia Evaluation PreOp ---
Date of Encounter: 05/15/19 Time of Encounter: 18:45 - Past History Planned Operation: Expl Lap/Colectomy/Colostomy/Marylin's procedure Cardiac History: Denies any Significant Hx Pulmonary History: Asthma (childhood seasonal asthma. Last Inhaler use approx >5yrs ago) PEDIATRIC OPHTHALMOLOGIST History: Other (Anxiety/Depression) Other Medical History: GERD, Other (Hx diverticulitis. Admitted w/related perforation & abcess) Anesthesia History: No Prior Anesthetic Complications, Past Anesthesia (NO prior GA. [place] teeth extraction), (NO FamHx of ) Alcohol Use: none Drug use: none Medications and Allergies Esomeprazole Magnesium [Nexium] 20 mg PO DAILY PRN 05/01/19 [History] Ciprofloxacin [Cipro] 500 mg PO BID 10 Days #20 tablet 05/12/19 [Rx] Docusate Sodium [Colace] 100 mg PO BID PRN #30 capsule 05/12/19 [Rx] HYDROcodone/Acet 5/325 mg [[place] 5-325 mg] 1 tab PO Q6H PRN 5 Days #20 tab 04/25 [Rx] Ibuprofen 800 mg PO Q8H PRN #30 tablet 05/12/19 [Rx] Ondansetron ODT [Zofran ODT] 4 mg SL Q4HR PRN #30 tab.rapdis 05/12/19 [Rx] metroNIDAZOLE [Flagyl] 500 mg PO TID 20 Days #42 tablet 05/12/19 [Rx] Allergy/AdvReac Type Severity Reaction Status Date / Time No Known Allergies Allergy Verified 05/01/19 06:33 - Meds/Allergy Pre-op Review Medications Reviewed: Yes Allergies Reviewed: Yes Beta Blockers on Current Med List: No Anesthesia Results - Labs 05/15/19 11:50 05/15/19 11:50 Impressions Abdomen/Pelvis CT 05/15/19 14:00 IMPRESSION: 1. Interval placement of a pigtail drainage catheter within the left lower quadrant, with complete resolution of the previously identified left lower quadrant diverticular abscess. There has also been significant interval decrease in size of the patient's known pelvic abscess. There has been complete resolution of previously identified pericecal fluid collection. 2. Mild residual inflammatory change of the sigmoid colon secondary to subacute diverticulitis. There is also reactive inflammatory change and wall thickening of adjacent small bowel loops. There is no evidence of dilatation or obstruction. 3. Complete resolution of previously identified small bilateral pleural effusions with curvilinear consolidative opacities within bilateral lung bases, likely atelectasis, less likely residual pneumonia. However, there are a few scattered nodular opacities within the bilateral lower lobes, one of which is new in comparison with the prior study, the largest measuring 10 mm in size. Suggest a dedicated chest CT for further characterization and follow-up, as advised below. RECOMMENDATIONS: Guidelines for follow-up and management of pulmonary nodules found on abdomen CT: >8mm - immediate chest CT for further evaluation. Radiology 2017 http://pubs.rsna.org/doi/full/10.1148/[email or web address] D/ / 05/15/2019 14:57:29 Hermilo Linares MD / Jessica Mallory Interpreting Provider: Hermilo Linares MD Laboratory Results Anesthesia Exam Vital Signs Temp Pulse Resp BP Pulse Ox 05/15/19 12:04 98.6 F 05/15/19 11:19 91 18 130/90 100 Intake and Output 05/15/19 05/15/19 05/15/19 07:59 15:59 23:59 Intake Total 200 / 1300 1100 / 1300 Balance 200 / 1300 1100 / 1300 Intake: IV Fluids 200 / 1300 1100 / 1300 0.9 % Sodium Chloride 1,000 ML 1000 / 1000 @ 125 mls/hr IVC .Q8H PASCUAL Rx#: [id number] Cipro Premix 400 MG/200 ML 400 200 / 200 mg In 200 ml @ 200 mls/hr IVPB Q12H PASCUAL Rx#:[id number] Flagyl Premix 500 MG/100 ML 500 100 / 100 mg In 100 ml @ 100 mls/hr IVPB Q8HR PASCUAL Rx#:[id number] Other: Meal NPO Weight 86.183 kg Patient Weight 05/15/19 23:59 Weight 86.183 kg Height: 6'2" Weight: 190# BMI = 24 NPO (# of Hours): MNOC - HEENT Pupil (Motor): Pupils equal, EOMI Mallampati: II Teeth: Normal Oral Opening: Greater than 3 - PEDIATRIC OPHTHALMOLOGIST LOC: Oriented PEDIATRIC OPHTHALMOLOGIST Motor: Normal RUE, Normal LUE, Normal RLE, Normal LLE, Normal Face PEDIATRIC OPHTHALMOLOGIST Sensory: Normal: RUE, LUE, RLE, LLE, Face - Cardiac Rhythm: Regular Murmur: None - Pulmonary Breath Sounds: bilateral Clear Respiratory Effort: Symmetrical Anesthesia Assess/Plan ASA Score: 2 (Asthma, Diverticular perforation/abcess, GERD,) Level of consciousness: Cooperative, Oriented, Tranquil Anesthetic Plan: General Monitoring Plan: Standard Monitors Recovery Plan: PACU Anes Supervising Prov Stmt: Pt seen/evaluated, R&B Discussed, questions answered and consent obtained. Jael Galvez MD
[2019-05-15] MEDS ORDERED: *HR* Rocuronium Bromide 50 MG/5 ML VIAL ONE (18:50)
[2019-05-15] MEDS ORDERED: Lidocaine -MPF 4% 5 ML AMPUL ONE (18:50)
[2019-05-15] MEDS ORDERED: *HR* Succinylcholine 200 MG/10 ML VIAL IVP ONE (18:50)
[2019-05-15] MEDS ORDERED: *HR* Midazolam HCl 2 MG/2 ML VIAL ONE (18:50)
[2019-05-15] MEDS ORDERED: *HR* Propofol 200 MG/20 ML VIAL IVP ONE (18:50)
[2019-05-15] MEDS ORDERED: *HR* FentaNYL (PF) 100 MCG/2 ML VIAL ONE (18:50)
[2019-05-15] MEDS ORDERED: Dexamethasone 4 MG/ML VIAL ONE ×3 (18:50→23:20)
[2019-05-15] MEDS ORDERED: Lidocaine -MPF 2% 2 ML VIAL ONE (18:50)
[2019-05-15] MEDS ORDERED: Ondansetron 4 MG/2 ML VIAL ONE (18:50)
[2019-05-15] MEDS ORDERED: CefOXitin 1,000 MG VIAL ONE (20:29)
[2019-05-15] MEDS ORDERED: Famotidine 20 MG/2 ML VIAL ONE (20:45)
[2019-05-15] MEDS ORDERED: Acetaminophen IV 1,000 MG/100 ML INFUS..BTL ONE (20:45)
[2019-05-15] MEDS ORDERED: *HR* HYDROMORPHONE 2 MG/ML VIAL ONE ×2 (21:33→23:15)
[2019-05-15] MEDS ORDERED: *HR* Magnesium Sulfate 1 GM/2 ML VIAL ONE ×2 (21:42→21:47)
[2019-05-15] MEDS ORDERED: Neostigmine Methylsulfate 3 MG/3 ML SYRINGE ONE (22:56)
[2019-05-15] MEDS ORDERED: Ketorolac 30 MG/ML VIAL ONE (22:57)
[2019-05-15] MEDS ORDERED: *HR* HYDROmorphone (PF) 1 MG/ML SYRINGE IVP PRN (23:04)
[2019-05-15] MEDS ORDERED: *HR* Labetalol 20 MG/4 ML SYRINGE IVP PRN (23:04)
[2019-05-15] MEDS ORDERED: *HR* Promethazine 25 MG/ML VIAL IVP PRN (23:04)
--- NOTE | 2019-05-15 23:31 | Operative Note ---
Date of procedure: 05/15/19 Pre-op diagnosis: perforated sigmoid diverticulitis Post-op diagnosis: same (with erosion of drain into small bowel) Procedure: 1. Exploratory laparotomy 2. Sigmoid colon resection 3. Enterrorhaphy Complications: None Anesthesia: GETA Surgeon: Janes Cruz Was there an financial legal assistant present: Yes Police Worker: Danya Davis Estimated blood loss (cc): 50 Specimen: Sigmoid colon Condition: stable Disposition: PACU Procedure in Detail: This 33-year-old male with perforated sigmoid diverticulitis is taken to the operating room and placed in the supine position. Anterior abdominal wall was prepped and draped in the usual sterile fashion. A midline incision is made from the infraumbilical area to the suprapubic area. Subcutaneous tissues are dissected down to anterior rectus fascia. Fascia is divided with using electrocautery. The intra-abdominal cavity was carefully entered. A small intestine and omentum with adhesions are immediately encountered. There is no he reports fecal contamination appreciated. After lysis of small bowel and omental adhesions the intra-abdominal cavity is explored. The pigtail catheter that was placed through interventional radiology is found and followed to is going to be presumably one of the patient's abscess cavities. However the tip of the drain has eroded into the small intestine and therefore explaining the one day of drainage of feculent-looking material. This erosion and enterotomy is relatively acute with out progressive inflammation and it is contained with out any drainage to the outside of the bowel. The to drain is then removed the small bowel enterotomy is repaired using 3-0 Vicryl sutures for a full-thickness closure and 3-0 silk sutures for and interrupted Lembert closure of the serosa. The entire small bowel was followed and there are several areas where the serosa seemed breeched and so this was fixed with a partial thickness Lembert serosal closure into other areas. The bowel was viable and was not considered inflamed. The sigmoid colon was then explored and also the abscess cavities as suggested by the preoperative CT scan had resolved. There was no fecal contamination of the intra-abdominal cavity. The palpable mass was appreciated in the mid sigmoid colon associated with recent inflammation and perforation of the sigmoid colon. A short segmental resection is determined with primary [id number] and anastomosis. The transection margins are determined and the tissue had each transection margin is pink and plump and healthy and viable. The Enseal was used to divide the sigmoid colon mesentery. The proximal and distal transection margins are approximated and a [id number] [place] anastomosis is created using a linear CHARIS stapling device. The rent that is made in each side of the anastomosis is then closed with a handsewn closure. 3-0 Vicryl was used as a full-thickness closure followed by 3-0 silk Lembert sutures. Once the anastomosis is completed and felt to be airtight AdvaSeal was used to fibrin glue over this area. A KHALIDA drain is placed next to the side to side anastomosis. Copious irrigation is carried out in the intra-abdominal cavity. The fascia is then closed using #1 looped PDS. The wound is copiously irrigated. Skin is closed using denzel. The drain is sewn in with 3-0 nylon suture. Sterile dressing is placed. Patient tolerated procedure well was taken to PACU in good condition
[2019-05-16] MEDS ORDERED: *HR* LORazepam 2 MG/ML VIAL IVP PRN (00:15)
[2019-05-16] MEDS: Acetaminophen IV 1,000 MG/100 ML INFUS..BTL IVPB SCH ×5 (01:25→23:40)
[2019-05-16] MEDS: 0.9 % Sodium Chloride 1,000 ML IVC SCH ×3 (01:25→21:44)
[2019-05-16] MEDS: Morphine PCA 30 MG/ 30 ML 30 ML PCA.VIAL IVC PRN ×2 (02:37→17:01)
[2019-05-16] MEDS: Ondansetron 4 MG/2 ML VIAL IVP PRN ×2 (02:49→09:35)
--- NOTE | 2019-05-16 04:07 | Anesthesia Evaluation Post Op ---
Date of Encounter: 05/15/19 Time of Encounter: 23:50 - Vital Signs Vital Signs: Vital Signs Temp Pulse Resp BP Pulse Ox 05/15/19 23:56 98.4 F 88 16 147/94 97 05/15/19 23:46 68 16 149/95 95 05/15/19 23:36 76 12 157/93 98 05/15/19 23:26 98.4 F 73 10 148/92 100 05/15/19 19:56 99.1 F 90 18 116/74 97 05/15/19 12:04 98.6 F 05/15/19 11:19 91 18 130/90 100 Intake and Output 05/15/19 05/15/19 05/16/19 15:59 23:59 07:59 Intake Total 200 / 1300 1100 / 1300 Output Total 460 / 460 0 / 0 Balance 200 / 840 640 / 840 0 / 0 Intake: IV Fluids 200 / 1300 1100 / 1300 0.9 % Sodium Chloride 1,000 ML 1000 / 1000 @ 125 mls/hr IVC .Q8H PASCUAL Rx#: [id number] Cipro Premix 400 MG/200 ML 400 200 / 200 mg In 200 ml @ 200 mls/hr IVPB Q12H PASCUAL Rx#:[id number] Flagyl Premix 500 MG/100 ML 500 100 / 100 mg In 100 ml @ 100 mls/hr IVPB Q8HR PASCUAL Rx#:[id number] Oral 0 / 0 Output: Urine 340 / 340 Estimated Blood Loss 50 / 50 Urine Amount (Catheter) 50 / 50 Wound Drainage 20 / 20 0 / 0 LLQ 0 / 0 Other: Meal NPO Weight 86.183 kg - Lungs Lungs: Clear Ascult./Percussion - Airway Airway: Non-obstructed - Cardiovascular Regular Rate, Baseline Rhythm - Mental Status Mental Status: Asleep with brisk response to light stimulation - Pain Pain Scale: 0 Pain Scale used: Numeric (1 - 10) - Nausea Vomiting Nausea Vomiting: Not Present - Hydration Hydration: NPO, Lainez catheter - Discharge PostOp Status: Transfer Patient to floor Anes Supervising Prov Stmt: Pt seen/evaluated, VSS And has met criteria for discharge to home. - MD Leonor
[2019-05-16 04:34] LABS: Basophils % 0.1 %; Hematocrit 44.6 % (37.5-50.1); Hemoglobin 14.3 g/dL (12.9-16.9); Immature Granulocytes % 0.5 % (0-4); Lymphocytes # 0.6 K/mcL (0.6-4.6); Lymphocytes % 3.7 %; Mean Corpuscular HGB Conc 32.1 g/dL (31.6-35.5); Mean Corpuscular Hemoglobin 28.5 pg (28.0-33.3); Mean Corpuscular Volume 88.8 fL (83.0-100.0); Mean Platelet Volume 9.5 fL (9.4-12.4); Monocytes # 0.5 K/mcL (0.0-1.3); Neutrophils # 15.2 K/mcL (1.6-8.9); Platelet Count 485 K/mcL (140-400); Red Blood Count 5.02 M/mcL (4.19-5.50); Red Cell Distribution Width 14.2 % (11.5-14.5); Segmented Neutrophils % 92.7 %
[2019-05-16 04:49] LABS: White Blood Count 16.4 K/mcL (4.3-11.1)
[2019-05-16 04:51] LABS: BUN/Creatinine Ratio 13 (6-26); Blood Urea Nitrogen 12 mg/dL (6-20); Calcium 8.8 mg/dL (8.6-10.3); Carbon Dioxide 23 mEq/L (23-29); Chloride 103 mEq/L (98-107); Glucose 143 mg/dL (70-105); Osmolality,Calculated 282 (280-300); Potassium 4.6 mEq/L (3.5-5.1); Sodium 135 mEq/L (136-145); eGFR For African Americans > 60 (> 60); eGFR For Non-African Americans > 60 (> 60)
[2019-05-16] MEDS: Pantoprazole 40 MG VIAL IVP SCH (09:34)
[2019-05-16] MEDS: MetroNIDAZOLE 500 MG/100 ML 500 MG/100 ML BAG IVPB SCH ×3 (09:35→23:46)
--- NOTE | 2019-05-16 11:45 | AcuteCareSurgery Progress Note ---
<Yeni Norris - Last Filed: 05/16/19 13:11> Date of Encounter: 05/16/19 Time of Encounter: 10:00 - Assessment and Plan (1) Diverticulitis of colon with perforation Current Visit: Yes Status: Acute Date of procedure: 05/15/19 Pre-op diagnosis: perforated sigmoid diverticulitis Post-op diagnosis: same (with erosion of drain into small bowel) Procedure: 1. Exploratory laparotomy 2. Sigmoid colon resection 3. Enterrorhaphy Complications: None Anesthesia: GETA Surgeon: Janes Curz POD #1 as above. Per op report, surgical drain had eroded into the small bowel. Pathology remains pending. Pt reports he is overall doing well but the VIDEOGAME TESTER is making him nauseated. We have added scopolamine patch and scheduled zofran. Spoke with pharmacy who states no other VIDEOGAME TESTER is avalable. IF he remains nauseated, will switch to dilaudid IV push. Plan: Continue supportive care and discomfort management while awaiting full return of bowel function ice chips okay Continue G.I. and DVT prophylaxis Incentive spirometry 10 times every hour while awake Out of bed to chair TID, do not offer meal trays while in the bed Activity as tolerated Apply ice 20 minutes on 20 minutes off as needed DC Shaikh catheter continue IV antibiotics repeat a.m. labs continue to closely monitor in the hospital Qualifiers: Diverticulitis bleeding: without bleeding Qualified Code(s): K57.20 - Diverticulitis of large intestine with perforation and abscess without bleeding (2) GERD (gastroesophageal reflux disease) Current Visit: Yes Status: Chronic IV protonix Qualifiers: Esophagitis presence: without esophagitis Qualified Code(s): K21.9 - Gastro-esophageal reflux disease without esophagitis (3) DVT prophylaxis Current Visit: Yes Status: Acute EPCDs HEp SQ (4) Anxiety Current Visit: Yes Status: Acute PRN Lorazepam, transition to po buspar or hydroxizine when appropriate Subjective Patient reports: still having pain, pain is less, voiding w/o difficulty (per shaikh), no flatus, no bowel movement, nausea, afebrile Objective Vital Signs - Last 8 Hours Temp Pulse Resp BP Pulse Ox 05/16/19 10:31 97.9 F 64 16 108/65 98 05/16/19 08:00 97.7 F 75 16 118/71 91 Intake and Output 05/15/19 05/16/19 05/16/19 23:59 07:59 15:59 Intake Total 1100 / 1300 100 / 100 0 / 100 Output Total 460 / 460 50 / 1750 1700 / 1750 Balance 640 / 840 50 / -1650 -1700 / -1650 Intake: IV Fluids 1100 / 1300 100 / 100 0.9 % Sodium Chloride 1,000 ML 1000 / 1000 @ 125 mls/hr IVC .Q8H PASCUAL Rx#: [id number] Ofirmev 1,000 mg/100 ml 1,000 100 / 100 mg In 100 ml @ 400 mls/hr IVPB Q6HR PASCUAL Rx#:[id number] Flagyl Premix 500 MG/100 ML 500 100 / 100 mg In 100 ml @ 100 mls/hr IVPB Q8HR PASCUAL Rx#:[id number] Oral 0 / 0 0 / 0 Output: Urine 340 / 340 Estimated Blood Loss 50 / 50 Urine Amount (Catheter) 50 / 50 Catheter 1700 / 1700 Wound Drainage 20 / 20 50 / 50 LLQ 50 / 50 Other: Meal NPO NPO Percent of Meal Consumed 0% # Voids 0 # Bowel Movements 0 Blood Glucose* 110 - General physical appearance well nourished, no distress, moderate pain - Eyes normal ocular movement - ENT atraumatic, normocephalic - Neck Neck exam: trachea midline - Respiratory other (decreaed resp effort) - Cardiovascular Cardiovascular exam: Present: RRR - Abdomen Abdomen: Present: soft, tender (expected postoperative). Absent: bowel sounds present Hernia: none - Incision Incision: Present: clean and dry (PICOT intact) - Integumentary no rash - Neurologic normal sensation - Musculoskeletal normal posture - Psychiatric oriented to time, oriented to person, oriented to place, speech is normal, memory intact - Labs 05/16/19 04:08 05/16/19 04:08 Diabetes panel 05/15/19 05/16/19 Range/Units 11:50 04:08 Sodium 140 135 L (136-145) mEq/L Potassium 3.8 4.6 (3.5-5.1) mEq/L Chloride 103 103 (98-107) mEq/L Carbon Dioxide 25 23 (23-29) mEq/L BUN 13 12 (6-20) mg/dL Creatinine 1.00 0.90 (0.70-1.30) mg/dL Glucose 91 143 H (70-105) mg/dL Calcium 9.3 8.8 (8.6-10.3) mg/dL AST 24 (13-39) Units/L ALT 45 (7-52) Units/L Alkaline Phosphatase 124 H (34-104) Units/L Albumin 3.9 (3.5-5.7) g/dL Calcium panel 05/15/19 05/16/19 Range/Units 11:50 04:08 Calcium 9.3 8.8 (8.6-10.3) mg/dL Phosphorus 2.6 L (2.7-4.5) mg/dL Albumin 3.9 (3.5-5.7) g/dL Pituitary panel 05/15/19 05/16/19 Range/Units 11:50 04:08 Sodium 140 135 L (136-145) mEq/L Potassium 3.8 4.6 (3.5-5.1) mEq/L Chloride 103 103 (98-107) mEq/L Carbon Dioxide 25 23 (23-29) mEq/L BUN 13 12 (6-20) mg/dL Creatinine 1.00 0.90 (0.70-1.30) mg/dL Glucose 91 143 H (70-105) mg/dL Calcium 9.3 8.8 (8.6-10.3) mg/dL Adrenal panel 05/15/19 05/16/19 Range/Units 11:50 04:08 Sodium 140 135 L (136-145) mEq/L Potassium 3.8 4.6 (3.5-5.1) mEq/L Chloride 103 103 (98-107) mEq/L Carbon Dioxide 25 23 (23-29) mEq/L BUN 13 12 (6-20) mg/dL Creatinine 1.00 0.90 (0.70-1.30) mg/dL Glucose 91 143 H (70-105) mg/dL Calcium 9.3 8.8 (8.6-10.3) mg/dL Total Bilirubin 0.7 (0.3-1.0) mg/dL AST 24 (13-39) Units/L ALT 45 (7-52) Units/L Alkaline Phosphatase 124 H (34-104) Units/L Albumin 3.9 (3.5-5.7) g/dL Consult Discharge Plan - Plan Referrals: NONE,PCP [Primary Care Provider] - <Maurice Wilson - Last Filed: 05/16/19 13:50> Date of Encounter: 05/16/19 Objective Vital Signs - Last 8 Hours Temp Pulse Resp BP Pulse Ox 05/16/19 10:31 97.9 F 64 16 108/65 98 05/16/19 08:00 97.7 F 75 16 118/71 91 Intake and Output 05/15/19 05/16/19 05/16/19 23:59 07:59 15:59 Intake Total 1100 / 1300 200 / 1200 1000 / 1200 Output Total 460 / 460 50 / 1750 1700 / 1750 Balance 640 / 840 150 / -550 -700 / -550 Intake: IV Fluids 1100 / 1300 200 / 1200 1000 / 1200 0.9 % Sodium Chloride 1,000 ML 1000 / 1000 1000 / 1000 @ 125 mls/hr IVC .Q8H PASCUAL Rx#: [id number] Ofirmev 1,000 mg/100 ml 1,000 200 / 200 mg In 100 ml @ 400 mls/hr IVPB Q6HR PASCUAL Rx#:[id number] Flagyl Premix 500 MG/100 ML 500 100 / 100 mg In 100 ml @ 100 mls/hr IVPB Q8HR PASCUAL Rx#:[id number] Oral 0 / 0 0 / 0 Output: Urine 340 / 340 Estimated Blood Loss 50 / 50 Urine Amount (Catheter) 50 / 50 Catheter 1700 / 1700 Wound Drainage 20 / 20 50 / 50 LLQ 50 / 50 Other: Meal NPO NPO Percent of Meal Consumed 0% # Voids 0 # Bowel Movements 0 Blood Glucose* 103 - Labs 05/16/19 04:08 05/16/19 04:08 Diabetes panel 05/16/19 Range/Units 04:08 Sodium 135 L (136-145) mEq/L Potassium 4.6 (3.5-5.1) mEq/L Chloride 103 (98-107) mEq/L Carbon Dioxide 23 (23-29) mEq/L BUN 12 (6-20) mg/dL Creatinine 0.90 (0.70-1.30) mg/dL Glucose 143 H (70-105) mg/dL Calcium 8.8 (8.6-10.3) mg/dL Calcium panel 07/10/19 Range/Units 04:08 Calcium 8.8 (8.6-10.3) mg/dL Pituitary panel 05/16/19 Range/Units 04:08 Sodium 135 L (136-145) mEq/L Potassium 4.6 (3.5-5.1) mEq/L Chloride 103 (98-107) mEq/L Carbon Dioxide 23 (23-29) mEq/L BUN 12 (6-20) mg/dL Creatinine 0.90 (0.70-1.30) mg/dL Glucose 143 H (70-105) mg/dL Calcium 8.8 (8.6-10.3) mg/dL Adrenal panel 05/16/19 Range/Units 04:08 Sodium 135 L (136-145) mEq/L Potassium 4.6 (3.5-5.1) mEq/L Chloride 103 (98-107) mEq/L Carbon Dioxide 23 (23-29) mEq/L BUN 12 (6-20) mg/dL Creatinine 0.90 (0.70-1.30) mg/dL Glucose 143 H (70-105) mg/dL Calcium 8.8 (8.6-10.3) mg/dL - Attending Attestation I have personally performed a face to face evaluation on this patient. I have reviewed and agree with the care plan. History and Exam by me shows: The patient is seen and evaluated on morning rounds with the acute care surgery team. He is had sigmoid colon resection with primary anastomosis as well as repair of the small bowel at the point of drain perforation. His pain control is good. There are no bowel sounds yet. The lungs are clear. We will continue with IV hydration and supportive care. Maurice Wilson MD FACS
[2019-05-16] MEDS ORDERED: Ondansetron 4 MG/2 ML VIAL ONE (13:29)
[2019-05-16] MEDS: Scopolamine Patch 1.5 MG PATCH.TD72 TD SCH (13:34)
[2019-05-16] MEDS: Ondansetron 4 MG/2 ML VIAL IVP SCH ×3 (13:34→23:47)
[2019-05-16] MEDS: Ketorolac 15 MG/ML VIAL IVP SCH ×2 (17:09→23:47)
[2019-05-17] MEDS: Ondansetron 4 MG/2 ML VIAL IVP SCH ×6 (04:03→23:13)
[2019-05-17] MEDS: Ketorolac 15 MG/ML VIAL IVP SCH ×4 (05:51→23:11)
[2019-05-17] MEDS: Acetaminophen IV 1,000 MG/100 ML INFUS..BTL IVPB SCH ×4 (05:51→23:14)
[2019-05-17] MEDS: 0.9 % Sodium Chloride 1,000 ML IVC SCH ×3 (05:52→17:23)
[2019-05-17 06:32] LABS: Basophils # 0.1 K/mcL (0.0-0.2); Basophils % 0.6 %; Eosinophils # 0.1 K/mcL (0.0-0.6); Eosinophils % 0.6 %; Hematocrit 41.2 % (37.5-50.1); Immature Granulocytes % 0.8 % (0-4); Lymphocytes # 1.5 K/mcL (0.6-4.6); Mean Corpuscular HGB Conc 30.3 g/dL (31.6-35.5); Mean Corpuscular Hemoglobin 27.7 pg (28.0-33.3); Mean Corpuscular Volume 91.4 fL (83.0-100.0); Mean Platelet Volume 9.9 fL (9.4-12.4); Monocytes # 1.1 K/mcL (0.0-1.3); Monocytes % 12.6 %; Neutrophils # 5.9 K/mcL (1.6-8.9); Platelet Count 355 K/mcL (140-400); Red Blood Count 4.51 M/mcL (4.19-5.50); Red Cell Distribution Width 14.4 % (11.5-14.5); Segmented Neutrophils % 68.4 %; White Blood Count 8.6 K/mcL (4.3-11.1)
[2019-05-17 06:41] LABS: Hemoglobin 12.5 g/dL (12.9-16.9)
[2019-05-17 06:53] LABS: BUN/Creatinine Ratio 13 (6-26); Blood Urea Nitrogen 11 mg/dL (6-20); Calcium 8.7 mg/dL (8.6-10.3); Carbon Dioxide 24 mEq/L (23-29); Chloride 105 mEq/L (98-107); Glucose 84 mg/dL (70-105); Magnesium 1.9 mg/dL (1.6-2.6); Osmolality,Calculated 289 (280-300); Phosphorous 3.2 mg/dL (2.7-4.5); Sodium 140 mEq/L (136-145); eGFR For African Americans > 60 (> 60); eGFR For Non-African Americans > 60 (> 60)
[2019-05-17] MEDS: MetroNIDAZOLE 500 MG/100 ML 500 MG/100 ML BAG IVPB SCH ×4 (08:10→23:14)
[2019-05-17] MEDS: Pantoprazole 40 MG VIAL IVP SCH (09:02)
[2019-05-17] MEDS ORDERED: *HR* FentaNYL (PF) 100 MCG/2 ML VIAL IVP PRN (13:59)
--- NOTE | 2019-05-17 14:03 | AcuteCareSurgery Progress Note ---
<Yeni Norris - Last Filed: 05/17/19 14:57> Date of Encounter: 05/17/19 Time of Encounter: 13:00 - Assessment and Plan (1) Diverticulitis of colon with perforation Current Visit: Yes Status: Acute Date of procedure: 05/15/19 Pre-op diagnosis: perforated sigmoid diverticulitis Post-op diagnosis: same (with erosion of drain into small bowel) Procedure: 1. Exploratory laparotomy 2. Sigmoid colon resection 3. Enterrorhaphy Complications: None Anesthesia: GETA Surgeon: Janes Cruz POD #2 as above. Per op report, surgical drain had eroded into the small bowel. Pathology remains pending. Pt reports he is overall doing well but the RIPENING ROOM OPERATOR is making him nauseated. We have added scopolamine patch and scheduled zofran. Spoke with pharmacy who states no other RIPENING ROOM OPERATOR is avalable. IF he remains nauseated, will switch to dilaudid IV push. ROHIT dressing has lost suction due to taped on pubic hair. We will ask the bedside RN to change stressing. Leave in place for 3 days. He is reluctant to participate in his care and has refused to get out of bed despite encouragement. He is again strongly encouraged to get out of bed at least 3 times today into ambulate in the halls. He reports he is not using his incentive spirometry. We will ask respiratory to see him for aggressive pulmonary toileting and this will have to be encouraged as well by nursing. Plan: Continue supportive care and discomfort management while awaiting full return of bowel function ice chips and Popsicles okay Continue G.I. and DVT prophylaxis Incentive spirometry 10 times every hour while awake Out of bed to chair TID, do not offer meal trays while in the bed Activity as tolerated Apply ice 20 minutes on 20 minutes off as needed strict intake and output continue IV antibiotics repeat a.m. labs continue to closely monitor in the hospital Qualifiers: Diverticulitis bleeding: without bleeding Qualified Code(s): K57.20 - Diverticulitis of large intestine with perforation and abscess without bleeding (2) GERD (gastroesophageal reflux disease) Current Visit: Yes Status: Chronic IV protonix Qualifiers: Esophagitis presence: without esophagitis Qualified Code(s): K21.9 - Gastro-esophageal reflux disease without esophagitis (3) DVT prophylaxis Current Visit: Yes Status: Acute EPCDs HEp SQ (4) Anxiety Current Visit: Yes Status: Acute PRN Lorazepam, transition to po buspar or hydroxizine when appropriate Subjective Patient reports: no new complaints, still having pain, pain is less, voiding w/o difficulty, no flatus, no bowel movement, nausea, afebrile Narrative: Reports if he uses morphine makes him nauseated. He has not gotten out of bed despite encouragement by nurses and family. He states he's afraid to do so because it feels tight. He has not ambulated. Objective Vital Signs - Last 8 Hours Temp Pulse Resp BP Pulse Ox 05/17/19 10:24 98.6 F 64 17 117/66 98 05/17/19 07:48 98 05/17/19 07:21 98.3 F 64 16 106/65 97 Intake and Output 05/16/19 05/17/19 05/17/19 23:59 07:59 15:59 Intake Total 1500 / 2900 1300 / 1300 Output Total 350 / 2500 847 / 1647 800 / 1647 Balance 1150 / 400 453 / -347 -800 / -347 Intake: IV Fluids 1500 / 2900 1300 / 1300 0.9 % Sodium Chloride 1,000 ML 1000 / 2000 1000 / 1000 @ 125 mls/hr IVC .Q8H PASCUAL Rx#: [id number] Ofirmev 1,000 mg/100 ml 1,000 200 / 500 mg In 100 ml @ 400 mls/hr IVPB Q6HR PASCUAL Rx#:[id number] Cipro Premix 400 MG/200 ML 400 200 / 200 200 / 200 mg In 200 ml @ 200 mls/hr IVPB Q12H PASCUAL Rx#:[id number] Flagyl Premix 500 MG/100 ML 500 100 / 200 100 / 100 mg In 100 ml @ 100 mls/hr IVPB Q8HR PASCUAL Rx#:[id number] Output: Urine 350 / 350 825 / 1625 800 / 1625 Wound Drainage LLQ Other: Weight 86.4 kg Blood Glucose* 87 85 84 Patient Weight 05/17/19 23:59 Weight 86.4 kg - General physical appearance no distress, no pain (at rest) - Eyes normal ocular movement - ENT normal nares (NG secured), atraumatic, normocephalic - Neck Neck exam: trachea midline - Respiratory other (decreaed resp effort) - Cardiovascular Cardiovascular exam: Present: RRR - Abdomen Abdomen: Present: soft, tender (expected ), wound (KHALIDA site unremarkable. Fluid is clearing up). Absent: bowel sounds present Hernia: none - Incision Incision: Present: clean and dry, intact (ROHIT has lost suction) - Integumentary no rash - Neurologic normal sensation - Musculoskeletal normal posture - Psychiatric oriented to time, oriented to person, oriented to place, speech is normal, memory intact - Labs 05/17/19 05:55 05/17/19 05:55 Diabetes panel 05/17/19 Range/Units 05:55 Sodium 140 (136-145) mEq/L Potassium 4.0 (3.5-5.1) mEq/L Chloride 105 (98-107) mEq/L Carbon Dioxide 24 (23-29) mEq/L BUN 11 (6-20) mg/dL Creatinine 0.82 (0.70-1.30) mg/dL Glucose 84 (70-105) mg/dL Calcium 8.7 (8.6-10.3) mg/dL Calcium panel 05/17/19 Range/Units 05:55 Calcium 8.7 (8.6-10.3) mg/dL Phosphorus 3.2 (2.7-4.5) mg/dL Pituitary panel 05/17/19 Range/Units 05:55 Sodium 140 (136-145) mEq/L Potassium 4.0 (3.5-5.1) mEq/L Chloride 105 (98-107) mEq/L Carbon Dioxide 24 (23-29) mEq/L BUN 11 (6-20) mg/dL Creatinine 0.82 (0.70-1.30) mg/dL Glucose 84 (70-105) mg/dL Calcium 8.7 (8.6-10.3) mg/dL Adrenal panel 05/17/19 Range/Units 05:55 Sodium 140 (136-145) mEq/L Potassium 4.0 (3.5-5.1) mEq/L Chloride 105 (98-107) mEq/L Carbon Dioxide 24 (23-29) mEq/L BUN 11 (6-20) mg/dL Creatinine 0.82 (0.70-1.30) mg/dL Glucose 84 (70-105) mg/dL Calcium 8.7 (8.6-10.3) mg/dL Consult Discharge Plan - Plan Referrals: NONE,PCP [Primary Care Provider] - <Maurice Wilson - Last Filed: 05/17/19 19:06> Date of Encounter: 05/17/19 Objective Vital Signs - Last 8 Hours Temp Pulse Resp BP Pulse Ox 05/17/19 16:41 98.7 F 77 17 120/70 96 Intake and Output 05/17/19 05/17/19 05/17/19 07:59 15:59 23:59 Intake Total 1400 / 2600 1100 / 2600 100 / 2600 Output Total 847 / 2167 800 / 2167 520 / 2167 Balance 553 / 433 300 / 433 -420 / 433 Intake: IV Fluids 1400 / 2600 1100 / 2600 100 / 2600 0.9 % Sodium Chloride 1,000 ML 1000 / 2000 1000 / 2000 @ 125 mls/hr IVC .Q8H PASCUAL Rx#: [id number] Ofirmev 1,000 mg/100 ml 1,000 100 / 200 100 / 200 mg In 100 ml @ 400 mls/hr IVPB Q6HR PASCUAL Rx#:[id number] Cipro Premix 400 MG/200 ML 400 200 / 200 mg In 200 ml @ 200 mls/hr IVPB Q12H PASCUAL Rx#:[id number] Flagyl Premix 500 MG/100 ML 500 100 / 200 100 / 200 mg In 100 ml @ 100 mls/hr IVPB Q8HR PASCUAL Rx#:[id number] Oral 0 / 0 Output: Urine 825 / 2125 800 / 2125 500 / 2125 Wound Drainage / 42 0 / 42 20 / LLQ / 0 / 42 20 / Other: Percent of Meal Consumed 0% Weight 86.4 kg Blood Glucose* 85 84 Patient Weight 05/17/19 23:59 Weight 86.4 kg - Labs 05/17/19 05:55 05/17/19 05:55 Diabetes panel 05/17/19 Range/Units 05:55 Sodium 140 (136-145) mEq/L Potassium 4.0 (3.5-5.1) mEq/L Chloride 105 (98-107) mEq/L Carbon Dioxide 24 (23-29) mEq/L BUN 11 (6-20) mg/dL Creatinine 0.82 (0.70-1.30) mg/dL Glucose 84 (70-105) mg/dL Calcium 8.7 (8.6-10.3) mg/dL Calcium panel 05/17/19 Range/Units 05:55 Calcium 8.7 (8.6-10.3) mg/dL Phosphorus 3.2 (2.7-4.5) mg/dL Pituitary panel 05/17/19 Range/Units 05:55 Sodium 140 (136-145) mEq/L Potassium 4.0 (3.5-5.1) mEq/L Chloride 105 (98-107) mEq/L Carbon Dioxide 24 (23-29) mEq/L BUN 11 (6-20) mg/dL Creatinine 0.82 (0.70-1.30) mg/dL Glucose 84 (70-105) mg/dL Calcium 8.7 (8.6-10.3) mg/dL Adrenal panel 05/17/19 Range/Units 05:55 Sodium 140 (136-145) mEq/L Potassium 4.0 (3.5-5.1) mEq/L Chloride 105 (98-107) mEq/L Carbon Dioxide 24 (23-29) mEq/L BUN 11 (6-20) mg/dL Creatinine 0.82 (0.70-1.30) mg/dL Glucose 84 (70-105) mg/dL Calcium 8.7 (8.6-10.3) mg/dL - Attending Attestation I have personally performed a face to face evaluation on this patient. I have reviewed and agree with the care plan. History and Exam by me shows: The patient is seen and evaluated on morning rounds with the acute care surgery team. His pain control is good. He does not have a nasogastric tube. He still does not have much in way of bowel sounds. We will keep him at nothing by mouth diet at this point. Progressing well Maurice Wilson MD FACS
[2019-05-18] MEDS: 0.9 % Sodium Chloride 1,000 ML IVC SCH ×3 (00:41→19:46)
[2019-05-18] MEDS: Ondansetron 4 MG/2 ML VIAL IVP SCH ×5 (04:59→20:05)
[2019-05-18] MEDS: Acetaminophen IV 1,000 MG/100 ML INFUS..BTL IVPB SCH ×3 (05:00→18:23)
[2019-05-18] MEDS: Ketorolac 15 MG/ML VIAL IVP SCH ×3 (05:00→18:23)
[2019-05-18 05:54] LABS: Basophils # 0.1 K/mcL (0.0-0.2); Basophils % 0.9 %; Eosinophils # 0.2 K/mcL (0.0-0.6); Eosinophils % 3.3 %; Hematocrit 37.2 % (37.5-50.1); Hemoglobin 11.6 g/dL (12.9-16.9); Immature Granulocytes % 0.4 % (0-4); Lymphocytes # 1.3 K/mcL (0.6-4.6); Lymphocytes % 19.3 %; Mean Corpuscular HGB Conc 31.2 g/dL (31.6-35.5); Mean Corpuscular Hemoglobin 27.9 pg (28.0-33.3); Mean Corpuscular Volume 89.4 fL (83.0-100.0); Monocytes # 0.7 K/mcL (0.0-1.3); Monocytes % 10.2 %; Neutrophils # 4.6 K/mcL (1.6-8.9); Platelet Count 332 K/mcL (140-400); Red Blood Count 4.16 M/mcL (4.19-5.50); Red Cell Distribution Width 13.8 % (11.5-14.5); Segmented Neutrophils % 65.9 %
[2019-05-18 06:13] LABS: BUN/Creatinine Ratio 12 (6-26); Blood Urea Nitrogen 9 mg/dL (6-20); Calcium 8.5 mg/dL (8.6-10.3); Carbon Dioxide 23 mEq/L (23-29); Chloride 108 mEq/L (98-107); Glucose 81 mg/dL (70-105); Magnesium 1.7 mg/dL (1.6-2.6); Osmolality,Calculated 286 (280-300); Potassium 3.8 mEq/L (3.5-5.1); Sodium 139 mEq/L (136-145); eGFR For African Americans > 60 (> 60); eGFR For Non-African Americans > 60 (> 60)
[2019-05-18] MEDS: MetroNIDAZOLE 500 MG/100 ML 500 MG/100 ML BAG IVPB SCH ×2 (08:37→15:57)
[2019-05-18] MEDS: Pantoprazole 40 MG VIAL IVP SCH (08:39)
--- NOTE | 2019-05-18 12:12 | AcuteCareSurgery Progress Note ---
Date of Encounter: 05/18/19 Time of Encounter: 07:00 - Assessment and Plan (1) Diverticulitis of colon with perforation Current Visit: Yes Status: Acute POD#3 ex lap with sigmoidectomy and enterorrhaphy. Maintain NPO with ice chips until flatus. Continue IV abx. Increase activity. Continue current course. Qualifiers: Diverticulitis bleeding: without bleeding Qualified Code(s): K57.20 - Diverticulitis of large intestine with perforation and abscess without bleeding Subjective Patient reports: no new complaints, feels better, still having pain, pain is less Narrative: NPO except ice chips and popcicles Objective Vital Signs - Last 8 Hours Temp Pulse Resp BP Pulse Ox 05/18/19 12:04 98.5 F 77 15 135/82 97 05/18/19 08:38 98.7 F 63 115/65 97 05/18/19 04:35 98.0 F 65 14 127/78 98 Intake and Output 05/17/19 05/18/19 05/18/19 23:59 07:59 15:59 Intake Total 1400 / 3900 1500 / 2450 950 / 2450 Output Total 1420 / 3067 800 / 822 22 / 822 Balance -20 / 833 700 / 1628 928 / 1628 Intake: IV Fluids 1400 / 3900 1500 / 2450 950 / 2450 0.9 % Sodium Chloride 1,000 ML 1000 / 3000 1000 / 1950 950 / 1950 @ 125 mls/hr IVC .Q8H PASCUAL Rx#: [id number] Ofirmev 1,000 mg/100 ml 1,000 100 / 200 200 / 200 mg In 100 ml @ 400 mls/hr IVPB Q6HR PASCUAL Rx#:[id number] Cipro Premix 400 MG/200 ML 400 200 / 400 200 / 200 mg In 200 ml @ 200 mls/hr IVPB Q12H PASCUAL Rx#:[id number] Flagyl Premix 500 MG/100 ML 500 100 / 300 100 / 100 mg In 100 ml @ 100 mls/hr IVPB Q8HR PASCUAL Rx#:[id number] Oral 0 / 0 Output: Urine 1400 / 3025 800 / 800 Wound Drainage LLQ Other: Percent of Meal Consumed 0% # Voids 1 Blood Glucose* 79 69 - General physical appearance well nourished, no distress, moderate pain (pain will controlled and pt off STITCHDOWNS TOE FORMER) - Eyes PERRL, normal ocular movement - ENT normal mucosa, no congestion - Neck Neck exam: trachea midline, no venous distension - Respiratory normal respiratory effort, clear to auscultation - Cardiovascular Cardiovascular exam: Present: RRR. Absent: JVD - Abdomen Abdomen: Present: bowel sounds present, soft, tender (as expected post-op) - Incision Incision: Present: clean and dry, intact (ROHIT in place) - Genitourinary other (no shaikh) - Neurologic CN 2-12 grossly intact, normal coordination - Musculoskeletal normal gait, normal posture - Psychiatric oriented to time, oriented to person, oriented to place - Labs 05/18/19 05:22 05/18/19 05:22 Diabetes panel 05/18/19 Range/Units 05:22 Sodium 139 (136-145) mEq/L Potassium 3.8 (3.5-5.1) mEq/L Chloride 108 H (98-107) mEq/L Carbon Dioxide 23 (23-29) mEq/L BUN 9 (6-20) mg/dL Creatinine 0.75 (0.70-1.30) mg/dL Glucose 81 (70-105) mg/dL Calcium 8.5 L (8.6-10.3) mg/dL Calcium panel 05/18/19 Range/Units 05:22 Calcium 8.5 L (8.6-10.3) mg/dL Phosphorus 3.0 (2.7-4.5) mg/dL Pituitary panel 05/18/19 Range/Units 05:22 Sodium 139 (136-145) mEq/L Potassium 3.8 (3.5-5.1) mEq/L Chloride 108 H (98-107) mEq/L Carbon Dioxide 23 (23-29) mEq/L BUN 9 (6-20) mg/dL Creatinine 0.75 (0.70-1.30) mg/dL Glucose 81 (70-105) mg/dL Calcium 8.5 L (8.6-10.3) mg/dL Adrenal panel 05/18/19 Range/Units 05:22 Sodium 139 (136-145) mEq/L Potassium 3.8 (3.5-5.1) mEq/L Chloride 108 H (98-107) mEq/L Carbon Dioxide 23 (23-29) mEq/L BUN 9 (6-20) mg/dL Creatinine 0.75 (0.70-1.30) mg/dL Glucose 81 (70-105) mg/dL Calcium 8.5 L (8.6-10.3) mg/dL Consult Discharge Plan - Plan Referrals: NONE,PCP [Primary Care Provider] -
[2019-05-19] MEDS: Ketorolac 15 MG/ML VIAL IVP SCH ×4 (00:25→17:55)
[2019-05-19] MEDS: MetroNIDAZOLE 500 MG/100 ML 500 MG/100 ML BAG IVPB SCH ×4 (00:28→23:50)
[2019-05-19] MEDS: Acetaminophen IV 1,000 MG/100 ML INFUS..BTL IVPB SCH ×4 (01:31→20:13)
[2019-05-19] MEDS: Ondansetron 4 MG/2 ML VIAL IVP SCH ×4 (01:37→13:00)
[2019-05-19 06:05] LABS: Basophils # 0.1 K/mcL (0.0-0.2); Basophils % 0.9 %; Eosinophils # 0.2 K/mcL (0.0-0.6); Eosinophils % 3.8 %; Hematocrit 34.8 % (37.5-50.1); Hemoglobin 11.2 g/dL (12.9-16.9); Immature Granulocytes % 0.3 % (0-4); Lymphocytes # 1.2 K/mcL (0.6-4.6); Lymphocytes % 20.9 %; Mean Corpuscular HGB Conc 32.2 g/dL (31.6-35.5); Mean Corpuscular Hemoglobin 28.4 pg (28.0-33.3); Mean Corpuscular Volume 88.3 fL (83.0-100.0); Mean Platelet Volume 9.2 fL (9.4-12.4); Monocytes # 0.6 K/mcL (0.0-1.3); Monocytes % 9.5 %; Neutrophils # 3.7 K/mcL (1.6-8.9); Platelet Count 328 K/mcL (140-400); Red Blood Count 3.94 M/mcL (4.19-5.50); Red Cell Distribution Width 13.7 % (11.5-14.5); Segmented Neutrophils % 64.6 %; White Blood Count 5.8 K/mcL (4.3-11.1)
[2019-05-19] MEDS: 0.9 % Sodium Chloride 1,000 ML IVC SCH (06:16)
[2019-05-19 06:26] LABS: BUN/Creatinine Ratio 8 (6-26); Blood Urea Nitrogen 7 mg/dL (6-20); Calcium 8.7 mg/dL (8.6-10.3); Carbon Dioxide 26 mEq/L (23-29); Chloride 106 mEq/L (98-107); Glucose 89 mg/dL (70-105); Magnesium 1.8 mg/dL (1.6-2.6); Osmolality,Calculated 287 (280-300); Phosphorous 3.4 mg/dL (2.7-4.5); Potassium 3.8 mEq/L (3.5-5.1); Sodium 140 mEq/L (136-145); eGFR For African Americans > 60 (> 60); eGFR For Non-African Americans > 60 (> 60)
[2019-05-19] MEDS: Pantoprazole 40 MG VIAL IVP SCH (10:13)
[2019-05-19] MEDS: Scopolamine Patch 1.5 MG PATCH.TD72 TD SCH (13:02)
[2019-05-19] MEDS ORDERED: Ondansetron 4 MG/2 ML VIAL IVP PRN (17:30)
--- NOTE | 2019-05-19 20:51 | AcuteCareSurgery Progress Note ---
Date of Encounter: 05/19/19 Time of Encounter: 16:00 - Assessment and Plan (1) Diverticulitis of colon with perforation Current Visit: Yes Status: Acute POD#4 ex lap with sigmoidectomy and enterorrhaphy. Clear liquid diet. Continue IV abx. Increase activity. Continue current course. Qualifiers: Diverticulitis bleeding: without bleeding Qualified Code(s): K57.20 - Diverticulitis of large intestine with perforation and abscess without bleeding Subjective Patient reports: no new complaints, feels better, still having pain, pain is less, flatus, no bowel movement, afebrile Objective Vital Signs - Last 8 Hours Temp Pulse Resp BP Pulse Ox 05/19/19 19:07 98.8 F 74 16 128/71 98 05/19/19 15:47 98.3 F 53 17 137/87 99 Intake and Output 05/19/19 05/19/19 05/19/19 07:59 15:59 23:59 Intake Total 1400 / 3000 200 / 3000 1400 / 3000 Output Total 1145 / 2753 1608 / 2753 Balance 255 / 247 -1408 / 247 1400 / 247 Intake: IV Fluids 1400 / 3000 200 / 3000 1400 / 3000 0.9 % Sodium Chloride 1,000 ML 1000 / 2000 1000 / 2000 @ 125 mls/hr IVC .Q8H PASCUAL Rx#: [id number] Ofirmev 1,000 mg/100 ml 1,000 100 / 300 100 / 300 100 / 300 mg In 100 ml @ 400 mls/hr IVPB Q6HR PASCUAL Rx#:[id number] Cipro Premix 400 MG/200 ML 400 200 / 400 200 / 400 mg In 200 ml @ 200 mls/hr IVPB Q12H PASCUAL Rx#:[id number] Flagyl Premix 500 MG/100 ML 500 100 / 300 100 / 300 100 / 300 mg In 100 ml @ 100 mls/hr IVPB Q8HR PASCUAL Rx#:[id number] Oral 0 / 0 Output: Urine 1125 / 2725 1600 / 2725 Wound Drainage LLQ Other: Meal NPO for lunch # Bowel Movements 0 Weight 85.9 kg Blood Glucose* 69 71 97 Patient Weight 05/19/19 23:59 Weight 85.9 kg - General physical appearance no distress, moderate pain (well controlled) - Eyes PERRL, normal ocular movement - ENT normal mucosa, no congestion - Neck Neck exam: trachea midline, no venous distension - Respiratory normal respiratory effort, clear to auscultation - Cardiovascular Cardiovascular exam: Present: RRR - Abdomen Abdomen: Present: bowel sounds present, soft, tender. Absent: distended Additional Comments: KHALIDA with minimal serosanguinous output - Incision Incision: Present: clean and dry, intact - Neurologic CN 2-12 grossly intact - Musculoskeletal normal gait, normal posture - Psychiatric oriented to time, oriented to person, oriented to place - Labs 05/19/19 05:55 05/19/19 05:55 Diabetes panel 05/19/19 Range/Units 05:55 Sodium 140 (136-145) mEq/L Potassium 3.8 (3.5-5.1) mEq/L Chloride 106 (98-107) mEq/L Carbon Dioxide 26 (23-29) mEq/L BUN 7 (6-20) mg/dL Creatinine 0.92 (0.70-1.30) mg/dL Glucose 89 (70-105) mg/dL Calcium 8.7 (8.6-10.3) mg/dL Calcium panel 05/19/19 Range/Units 05:55 Calcium 8.7 (8.6-10.3) mg/dL Phosphorus 3.4 (2.7-4.5) mg/dL Pituitary panel 05/19/19 Range/Units 05:55 Sodium 140 (136-145) mEq/L Potassium 3.8 (3.5-5.1) mEq/L Chloride 106 (98-107) mEq/L Carbon Dioxide 26 (23-29) mEq/L BUN 7 (6-20) mg/dL Creatinine 0.92 (0.70-1.30) mg/dL Glucose 89 (70-105) mg/dL Calcium 8.7 (8.6-10.3) mg/dL Adrenal panel 05/19/19 Range/Units 05:55 Sodium 140 (136-145) mEq/L Potassium 3.8 (3.5-5.1) mEq/L Chloride 106 (98-107) mEq/L Carbon Dioxide 26 (23-29) mEq/L BUN 7 (6-20) mg/dL Creatinine 0.92 (0.70-1.30) mg/dL Glucose 89 (70-105) mg/dL Calcium 8.7 (8.6-10.3) mg/dL Consult Discharge Plan - Plan Referrals: NONE,PCP [Primary Care Provider] -
[2019-05-20] MEDS: Acetaminophen IV 1,000 MG/100 ML INFUS..BTL IVPB SCH ×2 (00:49→06:20)
[2019-05-20] MEDS: Ketorolac 15 MG/ML VIAL IVP SCH ×5 (01:09→23:26)
[2019-05-20] MEDS: MetroNIDAZOLE 500 MG/100 ML 500 MG/100 ML BAG IVPB SCH ×2 (08:29→16:26)
[2019-05-20] MEDS: Pantoprazole 40 MG VIAL IVP SCH (08:29)
--- NOTE | 2019-05-20 09:43 | AcuteCareSurgery Progress Note ---
Date of Encounter: 05/20/19 Time of Encounter: 07:00 - Assessment and Plan (1) Diverticulitis of colon with perforation Current Visit: Yes Status: Acute POD#5 ex lap with sigmoidectomy and enterorrhaphy. Full liquid diet and advance to regular as tolerated. DC IV ofirmev. DC all pain meds except Toradol IV and add Percocet PO. Continue IV abx. Increase activity. DC KHALIDA. Continue current course. Qualifiers: Diverticulitis bleeding: without bleeding Qualified Code(s): K57.20 - Diverticulitis of large intestine with perforation and abscess without bleeding Subjective Patient reports: no new complaints, feels better, pain is less, tolerating liquids well, flatus, no bowel movement, afebrile Objective Vital Signs - Last 8 Hours Temp Pulse Resp BP Pulse Ox 05/20/19 07:14 98.6 F 75 16 121/76 98 05/20/19 04:43 98.4 F 51 16 110/66 96 Intake and Output 05/19/19 05/20/19 05/20/19 23:59 07:59 15:59 Intake Total 1400 / 3000 400 / 400 Output Total 500 / 3253 870 / 1070 200 / 1070 Balance 900 / -253 -470 / -670 -200 / -670 Intake: IV Fluids 1400 / 3000 400 / 400 0.9 % Sodium Chloride 1,000 ML 1000 / 2000 @ 125 mls/hr IVC .Q8H PASCUAL Rx#: [id number] Ofirmev 1,000 mg/100 ml 1,000 100 / 300 100 / 100 mg In 100 ml @ 400 mls/hr IVPB Q6HR PASCUAL Rx#:[id number] Cipro Premix 400 MG/200 ML 400 200 / 400 200 / 200 mg In 200 ml @ 200 mls/hr IVPB Q12H PASCUAL Rx#:[id number] Flagyl Premix 500 MG/100 ML 500 100 / 300 100 / 100 mg In 100 ml @ 100 mls/hr IVPB Q8HR PASCUAL Rx#:[id number] Output: Urine 500 / 3225 850 / 1050 200 / 1050 Wound Drainage 20 / 20 0 / 20 LLQ 20 / 20 0 / 20 Other: # Bowel Movements 0 Weight 83.7 kg Blood Glucose* 78 Patient Weight 05/20/19 23:59 Weight 83.7 kg - General physical appearance no distress, no pain - Eyes PERRL, normal ocular movement - ENT normal mucosa, no congestion - Neck Neck exam: trachea midline, no venous distension - Respiratory normal respiratory effort, clear to auscultation - Cardiovascular Cardiovascular exam: Present: RRR. Absent: JVD - Abdomen Abdomen: Present: bowel sounds present, soft, tender (appropriate for post-op) Additional Comments: KHALIDA with minimal serous fluid output - Incision Incision: Present: clean and dry, intact (ROHIT in place) - Neurologic CN 2-12 grossly intact, normal coordination - Musculoskeletal normal posture - Psychiatric oriented to time, oriented to person, oriented to place - Labs 05/19/19 05:55 05/19/19 05:55 Consult Discharge Plan - Plan Referrals: NONE,PCP [Primary Care Provider] -
[2019-05-20] MEDS ORDERED: *HR* OxyCODONE/APAP 5/325 TABLET PO PRN (09:45)
[2019-05-21] MEDS: MetroNIDAZOLE 500 MG/100 ML 500 MG/100 ML BAG IVPB SCH ×2 (00:41→08:28)
[2019-05-21] MEDS: Ketorolac 15 MG/ML VIAL IVP SCH (05:46)
[2019-05-21 06:58] VITALS: BP 124/77
--- NOTE | 2019-05-21 09:23 | Discharge Summary ---
Orders not resulted at time of discharge: Pending orders 05/15/19 23:10 Surgical Pathology [PTH] Routine Date of Encounter: 05/21/19 Time of Encounter: 09:21 - Discharge Diagnosis (1) Diverticulitis of colon with perforation Priority: Primary Status: Resolved Qualifiers: Diverticulitis bleeding: without bleeding Qualified Code(s): K57.20 - Diverticulitis of large intestine with perforation and abscess without bleeding (2) GERD (gastroesophageal reflux disease) Priority: Secondary Status: Chronic Qualifiers: Esophagitis presence: without esophagitis Qualified Code(s): K21.9 - Gastro-esophageal reflux disease without esophagitis (3) DVT prophylaxis Priority: Secondary Status: Acute (4) Anxiety Priority: Secondary Status: Acute General Surgery Exam Initial Vital Signs Pulse Resp BP Pulse Ox 91 18 130/90 100 05/15/19 11:19 05/15/19 11:19 05/15/19 11:19 05/15/19 11:19 Vital Signs Temp Pulse Resp BP Pulse Ox 05/21/19 06:55 98.1 F 65 15 124/77 97 05/21/19 03:59 97.9 F 71 16 109/69 98 05/21/19 00:35 98.6 F 74 126/77 93 05/20/19 19:44 98.2 F 78 15 137/76 98 05/20/19 15:45 98.3 F 67 16 114/71 98 05/20/19 12:00 96 05/20/19 10:42 98.3 F 61 16 120/72 96 Intake and Output 05/20/19 05/21/19 05/21/19 23:59 07:59 15:59 Intake Total 200 / 800 300 / 300 Output Total 350 / 350 Balance 200 / -695 -50 / -50 Intake: IV Fluids 200 / 800 300 / 300 Cipro Premix 400 MG/200 ML 400 200 / 400 200 / 200 mg In 200 ml @ 200 mls/hr IVPB Q12H PASCUAL Rx#:[id number] Flagyl Premix 500 MG/100 ML 500 100 / 100 mg In 100 ml @ 100 mls/hr IVPB Q8HR PASCUAL Rx#:[id number] Output: Urine 350 / 350 Other: Weight 83.7 kg Patient Weight 05/21/19 23:59 Weight 83.7 kg VITAL SIGNS: Reviewed. See [employer] GENERAL: In no apparent distress. HEENT: Normocephalic, atraumatic, pupils are equal and reactive, extraocular motions intact, oropharynx is pink and moist, there is no neck adenopathy or JVD noted. CHEST/RESPIRATORY: The thorax is free from signs of trauma. Lung sounds: clear to auscultation, normal respiratory effort CARDIAC: Regular rate and rhythm. Normal S1 and S2, without murmurs, gallops, or rubs. VASCULAR: No Edema. 2+ peripheral pulses. ABDOMEN: soft, active bowel sounds, expected postoperative tenderness, return of bowel function INCISION: Surgical incision is clean, dry, and intact. There are no signs of cellulitis or infection noted. MUSCULOSKELETAL: Good range of motion of all major joints. Extremities without clubbing, cyanosis or edema. NEUROLOGIC EXAM: Alert and oriented x 3. Speech normal. Follows commands. PSYCHIATRIC: Mood normal. SKIN: No rash or lesions. - Hospital Course Hospital course: Mr. Britt is a 33 year old male who presented on 05/15/2019 for perforated sigmoid diverticulitis. He had recently been admitted for treatment and was discharged on 05/13/2019 with a lower anterior abdomen drain in place. He reported new drainage that looks like stool. A CT of the abdomen and pelvis noted resolved diverticulitis an abscess. Given his history and new secular lengths, he was taken to the operating room on the same day where he underwent an exploratory laparotomy, sigmoid colon resection with anastomosis, and enterrorhaphy 2/2 small bowel erosion per drain. His subsequent hospital course has been unremarkable. He is ambulating avoiding without difficulty, tole rating a diet without nausea or vomiting, vital signs are stable, and he is afebrile. We will begin discharge planning to home with a follow-up in the office in approximately 2 weeks. - Time Spent with Patient Total time spent providing and/or coordinating discharge services: - Discharge Medications Prescriptions: Continued Esomeprazole Magnesium [Nexium] 20 mg PO DAILY Ciprofloxacin [Cipro] 500 mg PO BID 10 Days #20 tablet Docusate Sodium [Colace] 100 mg PO BID PRN #30 capsule PRN Reason: Contstipation metroNIDAZOLE [Flagyl] 500 mg PO TID 20 Days #42 tablet Ibuprofen 800 mg PO Q8H PRN #30 tablet PRN Reason: Postsurgical pain HYDROcodone/Acet 5/325 mg [Dawson 5-325 mg] 1 tab PO Q6H PRN 5 Days #20 tab PRN Reason: Pain Ondansetron ODT [Zofran ODT] 4 mg SL Q4HR PRN #30 tab.rapdis PRN Reason: Nausea Polyethylene Glycol 3350 [MiraLAX] 17 gm PO DAILY Home Medications: Esomeprazole Magnesium [Nexium] 20 mg PO DAILY 05/01/19 [History] Ciprofloxacin [Cipro] 500 mg PO BID 10 Days #20 tablet 05/12/19 [Rx] Docusate Sodium [Colace] 100 mg PO BID PRN #30 capsule 05/12/19 [Rx] HYDROcodone/Acet 5/325 mg [Dawson 5-325 mg] 1 tab PO Q6H PRN 5 Days #20 tab 05/12/19 [Rx] Ibuprofen 800 mg PO Q8H PRN #30 tablet 05/12/19 [Rx] Ondansetron ODT [Zofran ODT] 4 mg SL Q4HR PRN #30 tab.rapdis 05/12/19 [Rx] metroNIDAZOLE [Flagyl] 500 mg PO TID 20 Days #42 tablet 05/12/19 [Rx] Polyethylene Glycol 3350 [MiraLAX] 17 gm PO DAILY 05/16/19 [History] Allergies/Adverse Reactions: Allergy/AdvReac Type Severity Reaction Status Date / Time No Known Allergies Allergy Verified 05/01/19 06:33 Date of admission: 05/15/19 11:35 Primary care physician: PCP NONE Consults: 05/17/19 14:01 Consult to Respiratory Therapy [CONS] Routine Reason for Consult: Aggressive pulm toileting; pt is reluctant to use IS Time Notified: 14:01 Call Completed: No Discharging clinician: Mane Matson Anticipated date of discharge: 05/21/19 Labs on day of discharge: Labs from last 24 hours 05/20/19 05/19/19 05/19/19 12:31 23:40 17:11 POC Glucose 85 78 97 - Impressions ITS Impressions Abdomen/Pelvis CT 05/15/19 14:00 IMPRESSION: 1. Interval placement of a pigtail drainage catheter within the left lower quadrant, with complete resolution of the previously identified left lower quadrant diverticular abscess. There has also been significant interval decrease in size of the patient's known pelvic abscess. There has been complete resolution of the previously identified pericecal fluid collection. 2. Mild residual inflammatory change of the sigmoid colon secondary to subacute diverticulitis. There is also reactive inflammatory change and wall thickening of adjacent small bowel loops. There is no evidence of dilatation or obstruction. 3. Complete resolution of previously identified small bilateral pleural effusions with curvilinear consolidative opacities within the bilateral lung bases, likely atelectasis, less likely residual pneumonia. However, there are a few scattered nodular opacities within the bilateral lower lobes, one of which is new in comparison with the prior study, the largest measuring 10 mm in size. Suggest a dedicated chest CT for further characterization and follow-up, as advised below. RECOMMENDATIONS: Guidelines for follow-up and management of pulmonary nodules found on abdomen CT: >8mm - immediate chest CT for further evaluation. Radiology 2017 http://pubs.rsna.org/doi/full/10.1148/[email or web address] D/ / 05/15/2019 14:57:29 Hermilo Linares MD / Jessica Mallory Interpreting Provider: Hermilo Linares MD - Patient Status Disposition: Home, Self-Care Condition: Good Functional capacity at discharge: independent ambulation Overall status at discharge: patient is progressing back to baseline - Discharge Instructions Instructions: Colectomy (DC), Laparoscopic Bowel Resection (DC) Follow Up With: NONE,PCP [Primary Care Provider] - Yeni Norris, [employer]IS[employer]APH [Advanced Practice Nurse] - 05/29/19 1:15 pm Additional Instructions: General Surgical Discharge Instructions 1. No pushing, pulling, or lifting greater than 15 lbs for 6 weeks. 2. You may shower beginning today, but no tub baths, soaking, or swimming for 2 weeks. 3. No driving for two weeks. You may resume driving when you are off narcotics and are safe to react in a car (after two weeks). 4. Take ibuprofen every 8 hours for discomfort. If this does not relieve discomfort, you may take the as needed Hydrocodone. eat a small snack with pain meds. This helps prevent nausea. Take narcotics as directed. Do not take more narcotics then directed and do not share your narcotics with any other person. Do not drink alcohol while on narcotics. 5. Take stool softeners (Colace) or a water based laxative (Miralax) while taking narcotics. You may hold for loose stools. 6. Report any fevers greater than 100.5F, increase abdominal discomfort, drainage that looks like pus, increased redness or pain at the surgical site, or any vomiting. 7. Report any pain in the calves, shortness of breath, or rapid heartbeat. 8. Follow-up in the office as directed. 9. Continue your previously prescribed antibiotics for its normal course.Do not drink alcohol while taking metronidazole. Drinking alcohol while taking metronidazole can result in violent abdominal pain and vomiting. Refrain from alcohol use for 48 hours after completing metronidazole. - Diet and Activity Activity: increase activity as tolerated, return to work once cleared by your PCP/specialist Diet: advance to your usual diet
[2019-05-21] MEDS ORDERED: metroNIDAZOLE 500 MG TABLET PO ONE (09:24)
== END 2019-05-21 12:25 | disposition home or self-care (01) | DRG 330 ==
LOC: CDU → 3ANU 15:23
PROVIDERS: ADMIT Surgery; ATTEND Surgery